=== PATIENT | male | born 1940 | race African-American/Black ===

== ENCOUNTER → 2016-05-18 | Outpatient (CLI) | payer BC, MEDICARE | LOC: RAD 09:49 | PROVIDERS: ATTEND Internal Medicine | DX: R91.1 Solitary pulmonary nodule (principal); J98.4 Other disorders of lung | CPT/HCPCS: 71250 ==

== ENCOUNTER → 2016-06-05 | Outpatient (CLI) | payer BC, MEDICARE | LOC: RAD 16:34 | PROVIDERS: ATTEND Internal Medicine | DX: R91.1 Solitary pulmonary nodule (principal) | CPT/HCPCS: 78814; A9552 ==

== ENCOUNTER → 2017-12-26 | Outpatient (CLI) | payer BC, MEDICARE ==
--- NOTE | 2017-12-26 14:01 | RADIOLOGY REPORT (SQ) ---
EXAM DESCRIPTION: CT CHEST WITHOUT COMPLETED DATE/TIME: 12/26/2017 1:24 pm REASON FOR STUDY: R91.8 OTHER NONSPECIFIC ABNORMAL FINDING OF LUNG FIELD R91.8 OTHER NONSPECIFIC AB NORMAL FINDING OF LUNG FIELD COMPARISON: 2016. TECHNIQUE: CT scan performed of the chest without intravenous contrast. Images reviewed with lung, soft tissue and bone windows. Reconstructed coronal and sagittal MPR images reviewed. All images st ored on PACS. All CT scanners at this facility use dose modulation, iterative reconstruction, and/or weight based d osing when appropriate to reduce radiation dose to as low as reasonably achievable (ALARA). [facility]: Dose Right [facility]: CareDose [facility]: Dose Right [facility]: Teradose 4D [facility]: Smart REHAPP RADIATION DOSE: CT Rad equipment meets quality standard of care and radiation dose reduction techniq ues were employed. CTDIvol: 3.1 mGy. DLP: 142 mGy-cm. mGy. LIMITATIONS: No technical limitations. FINDINGS: LUNGS AND PLEURA: Chronic right upper lobe scarring. Chronic pleural plaque, some of whic h is calcified. Stable appearance. No developing lesions. HILAR AND MEDIASTINAL STRUCTURES: No bulky adenopathy or mass. Ectatic aorta. Ascending aorta measu res up to 3.9 cm. The aorta is calcified. HEART AND VASCULAR STRUCTURES: As above. Moderate coronary calcification. No pericardial effusion. UPPER ABDOMEN: No significant findings. Limited exam. THYROID AND OTHER SOFT TISSUES: No masses. No adenopathy. BONES: No significant finding. HARDWARE: None in the chest. OTHER: No other significant findings. IMPRESSION: Chronic lung changes. No progression in nodules. No new opacities. TECHNICAL DOCUMENTATION: JOB ID: [id number] Quality ID # [id number]: Final reports with documentation of one or more dose reduction techniques (e.g., Au tomated exposure control, adjustment of the mA and/or kV according to patient size, use of iterative reconstruction technique) 2010 [employer]- All Rights Reserved Reading location - IP/workstation name: [email or web address]
== END ==
LOC: RAD 14:25
PROVIDERS: ATTEND Internal Medicine Critical Care Medicine
DX: R91.8 Other nonspecific abnormal finding of lung field (principal)
CPT/HCPCS: 71250

== ENCOUNTER 2018-03-05 16:39 | Emergency (ER) | payer BC, MEDICARE ==
[2018-03-05] MEDS ORDERED: ASPIRIN 81 MG TABLET, CHEWABLE PO ONE (16:49)
--- NOTE | 2018-03-05 17:00 | ER Document Report ---
ED General - General Stated Complaint: DIZZY Time Seen by Provider: 03/05/18 16:57 Notes: Patient presents with a story of napping at work and waking up with his right eye unable to open, he said he felt dizzy he could not open his right eye had applied up with his fingers and was short of breath for a few minutes. This resolved on its own. It lasted 20 minutes. He has no current chest pain chest pressure numbness or tingling. He did not have chest pain at the time. She of COPD intermittent nebulizer and inhaler is used. TRAVEL OUTSIDE OF THE [place] IN LAST 30 DAYS: No - Related Data Allergies/Adverse Reactions: No Known Allergies Allergy (Unverified 10/11/10 11:46) Past Medical History - Social History Smoking Status: Former Smoker Family History: Reviewed & Not Pertinent - Past Medical History Cardiac Medical History: Reports: Hx Hypertension - LISINOPRIL Denies: Hx Heart Attack Pulmonary Medical History: Denies: Hx Asthma Neurological Medical History: Denies: Hx Cerebrovascular Accident, Hx Seizures GI Medical History: Denies: Hx Hepatitis, Hx Hiatal Hernia, Hx Ulcer Musculoskeletal Medical History: Reports Hx Gout - Right foot Infectious Medical History: Denies: Hx Hepatitis Past Surgical History: Denies: Hx Open Heart Surgery, Hx Pacemaker Review of Systems - Review of Systems Notes: REVIEW OF SYSTEMS GEN: Denies fever, chills, weight loss ENT: Denies sore throat, nasal discharge, ear pain EYES: Right lid twitching. Denies blurry vision, eye pain, discharge CV: Denies chest pain, palpitations, edema RESP: Denies cough, s positive shortness of breath GI: Denies abdominal pain, nausea, vomiting, diarrhea MSK: Denies joint pain/swelling, edema, SKIN: Denies rash, skin lesions LYMPH: Denies swollen glands/lymph nodes NEURO: Denies headache, focal weakness or numbness, dizziness PSYCH: Denies depression, suicidal or homicidal ideation PHYSICAL EXAMINATION General: Thin, positive temporal wasting Head: Atraumatic, normocephalic ENT: Mouth normal, oropharynx moist, no exudates or tonsillar enlargement Eyes: Conjunctiva normal, pupils equal, lids normal Neck: No JVD, supple, no guarding CVS: Normal rate, regular rhythm, no murmurs Resp: No resp distress, equal and normal breath sounds bilaterally GI: Nondistended, soft, no tenderness to palpation, no rebound or guarding Ext: No deformities, no edema, normal range of motion in upper and lower ext Back: No CVA or midline TTP Skin: No rash, warm Lymphatic: No lymphadeopathy noted Neuro: Awake, alert. Face symmetric. GCS 15. Radial nerves II through XII are intact, no ptosis. No gross motor or sensory deficits in all 4 extremities. Physical Exam - Vital signs Vitals: Resp Pulse Ox 17 98 03/05/18 16:54 03/05/18 16:54 Course - Re-evaluation Re-evalutation: 03/05/18 22:41 Patient presents with right eye twitching and dizziness after sleeping. His symptoms have resolved on ED arrival his vital signs are normal except for hypertension. He did not have it this morning and could be dehydrated. His or the static vital signs look good despite not having been ordered by me. His workup for stroke/mass is negative on head CT chest x-ray is negative and labs are unrevealing. He was reassessed, became significantly hypertensive throughout ED stay. He was given amlodipine. He was also hydrated both orally and IV and felt much better on getting up and walking. His lack of clear diagnosis was conveyed to his family and he was encouraged to follow-up with primary care however I do not see a need for him to be hospitalized at this point given his vague symptoms and negative ED workup. I have discussed with the patient there likely diagnosis, aftercare plan, follow-up plans and my usual and customary return precautions. They verbalized understanding of this. 03/07/18 01:39 Patient tolerated p.o. - Vital Signs Vital signs: Temp Pulse Resp BP Pulse Ox 97.5 F 70 19 160/78 H 96 03/05/18 17:51 03/05/18 20:37 03/05/18 19:15 03/05/18 21:30 03/05/18 19:15 - Laboratory Result Diagrams: 03/05/18 17:00 03/05/18 17:00 Laboratory results interpreted by me: 03/05/18 03/05/18 17:00 17:00 Hgb 12.8 L RDW 15.0 H Carbon Dioxide 32 H Est GFR (Non-Af Amer) 59 L Creatine Kinase 632 H - Diagnostic Test Radiology reviewed: Image reviewed, Reports reviewed - EKG Interpretation by Me EKG shows normal: Sinus rhythm Rate: Normal Voltage: Consistant with LVH When compared to previous EKG there are: No significant change Discharge - Discharge Clinical Impression: Dizziness Condition: Good Disposition: HOME, SELF-CARE Instructions: Dizziness ([facility]) Forms: Elevated Blood Pressure Referrals: RAMIREZ YOON MD [Primary Care Provider] - Follow up as needed
[2018-03-05 17:14] LABS: ABSOLUTE EOSINOPHILS # (AUTO) 0.1 10^3/uL (0.0-0.6); ABSOLUTE LYMPHOCYTES (AUTO) 1.2 10^3/uL (0.5-4.7); ABSOLUTE MONOCYTES (AUTO) 0.4 10^3/uL (0.1-1.4); BASOPHILS % (AUTO) 0.3 % (0-2); EOSINOPHILS % (AUTO) 2.2 % (0-6); HEMATOCRIT 38.6 % (37.9-51.0); HEMOGLOBIN 12.8 g/dL (13.5-17.0); LYMPHOCYTES % (AUTO) 21.2 % (13-45); MEAN CORPUSCULAR HEMOGLOBIN 28.2 pg (27.0-33.4); MEAN CORPUSCULAR HGB CONC 33.2 g/dL (32.0-36.0); MEAN CORPUSCULAR VOLUME 85 fl (80-97); MONOCYTES % (AUTO) 7.7 % (3-13); PLATELET COUNT 255 10^3/uL (150-450); RED BLOOD COUNT 4.54 10^6/uL (4.35-5.55); SEGMENTED NEUTROPHILS % (AUTO) 68.6 % (42-78); TOTAL CELLS COUNTED % (AUTO) 100 %; WHITE BLOOD COUNT 5.9 10^3/uL (4.0-10.5)
[2018-03-05 17:37] LABS: ALANINE AMINOTRANSFERASE 32 U/L (21-72); ALBUMIN 4.2 g/dL (3.5-5.0); ALKALINE PHOSPHATASE 89 U/L (38-126); ANION GAP 9 (5-19); ASPARTATE AMINO TRANSFERASE 44 U/L (17-59); BILIRUBIN,DIRECT 0.2 mg/dL (0.0-0.4); BILIRUBIN,TOTAL 0.5 mg/dL (0.2-1.3); BLOOD UREA NITROGEN 18 mg/dL (7-20); CALCIUM 9.2 mg/dL (8.4-10.2); CARBON DIOXIDE 32 mmol/L (22-30); CHLORIDE 103 mmol/L (98-107); CREATINE KINASE 632 U/L (55-170); GLUCOSE 99 mg/dL (75-110); POTASSIUM 4.4 mmol/L (3.6-5.0); SODIUM 144.2 mmol/L (137-145); TOTAL PROTEIN 8.1 g/dL (6.3-8.2)
[2018-03-05 17:49] LABS: CREATINE KINASE MB 4.07 ng/mL (<4.55)
[2018-03-05 17:50] LABS: TROPONIN I < 0.012 ng/mL
--- NOTE | 2018-03-05 18:34 | RADIOLOGY REPORT (SQ) ---
EXAM DESCRIPTION: CT HEAD WITHOUT COMPLETED DATE/TIME: 03/05/2018 6:19 pm REASON FOR STUDY: stroke COMPARISON: None. TECHNIQUE: Axial images acquired through the brain without intravenous contrast. Images reviewed wi th bone, brain and subdural windows. Additional sagittal and coronal reconstructions were generated. Images stored on PACS. All CT scanners at this facility use dose modulation, iterative reconstruction, and/or weight based d osing when appropriate to reduce radiation dose to as low as reasonably achievable (ALARA). [facility]: Dose Right [facility]: CareDose [facility]: Dose Right [facility]: Teradose 4D [facility]: Envi[employer]o RADIATION DOSE: CT Rad equipment meets quality standard of care and radiation dose reduction techniq ues were employed. CTDIvol: 48.5 mGy. DLP: 925 mGy-cm. mGy. LIMITATIONS: None. FINDINGS: VENTRICLES: Normal CEREBRUM: No masses. No hemorrhage. No midline shift. Areas of low density in the white matter mos t likely due to chronic micro-vascular ischemic change. No evidence for acute infarction. CEREBELLUM: No masses. No hemorrhage. No alteration of density. No evidence for acute infarction. EXTRAAXIAL SPACES: Mild age-related involutional change. No fluid collections. No masses. ORBITS AND GLOBE: No intra- or extraconal masses. Normal contour of globe without masses. CALVARIUM: No fracture. PARANASAL SINUSES: No fluid or mucosal thickening. SOFT TISSUES: No mass or hematoma. OTHER: No other significant finding. IMPRESSION: MILD CHRONIC CHANGES OF ATROPHY AND MICROVASCULAR ISCHEMIA. NO ACUTE PROCESS. EVIDENCE OF ACUTE STROKE: NO. TECHNICAL DOCUMENTATION: JOB ID: [id number] Quality ID # 436: Final reports with documentation of one or more dose reduction techniques (e.g., Au tomated exposure control, adjustment of the mA and/or kV according to patient size, use of iterative reconstruction technique) 2010 [employer]- All Rights Reserved Reading location - IP/workstation name: [email or web address]
--- NOTE | 2018-03-05 18:42 | RADIOLOGY REPORT (SQ) ---
EXAM DESCRIPTION: CHEST SINGLE VIEW COMPLETED DATE/TIME: 03/05/2018 6:14 pm REASON FOR STUDY: bed 3 cp COMPARISON: December 2015 EXAM PARAMETERS: NUMBER OF VIEWS: One view. TECHNIQUE: Single frontal radiographic view of the chest acquired. RADIATION DOSE: NA LIMITATIONS: None. FINDINGS: LUNGS AND PLEURA: No opacities, masses or pneumothorax. No pleural effusion. I cannot exc lude a component of obstructive lung disease. MEDIASTINUM AND HILAR STRUCTURES: No masses. There is some prominence of the central pulmonary vesse ls which could represent a degree of pulmonary vascular congestion but could be related to pulmonary hypertension. HEART AND VASCULAR STRUCTURES: Cardiac silhouette is at the upper limits of normal in size. BONES: No acute findings. HARDWARE: None in the chest. OTHER: No other significant finding. IMPRESSION: No acute findings. Other findings as noted above TECHNICAL DOCUMENTATION: JOB ID: [id number] [employer]- All Rights Reserved Reading location - IP/workstation name: [email or web address]
[2018-03-05] MEDS ORDERED: AMLODIPINE BESYLATE 10 MG TABLET PO ONE (19:55)
[2018-03-05 21:31] VITALS: BP 160/78
--- NOTE | 2018-03-05 21:52 | EKG REPORT ---
SEVERITY:- ABNORMAL ECG - SINUS ARRHYTHMIA, RATE 54-74 FIRST DEGREE AV BLOCK PROBABLE LEFT VENTRICULAR HYPERTROPHY ANTERIOR Q WAVES, POSSIBLY DUE TO LVH BORDERLINE ST ELEVATION, LATERAL LEADS : Confirmed by: Marla Haddad MD 05-Mar-2018 21:51:43
== END 2018-03-05 21:37 | disposition home or self-care (01) ==
LOC: ER 16:39
DX: R42 Dizziness and giddiness (principal); R25.3 Fasciculation; J44.9 Chronic obstructive pulmonary disease, unspecified; R06.02 Shortness of breath; I10 Essential (primary) hypertension; Z87.891 Personal history of nicotine dependence
CPT/HCPCS: 36415; 70450; 71045; 80053; 82550; 82553; 84484; 85025; 93005; 93010; 99285

== ENCOUNTER 2018-03-12 16:22 | Emergency (ER) | payer BC, MEDICARE ==
[2018-03-12] MEDS ORDERED: NORMAL SALINE 500 ML IV ONE (17:28)
[2018-03-12 17:37] LABS: ABSOLUTE EOSINOPHILS # (AUTO) 0.1 10^3/uL (0.0-0.6); ABSOLUTE LYMPHOCYTES (AUTO) 0.9 10^3/uL (0.5-4.7); ABSOLUTE MONOCYTES (AUTO) 0.5 10^3/uL (0.1-1.4); ABSOLUTE NEUT (AUTO) 5.5 10^3/uL (1.7-8.2); BASOPHILS % (AUTO) 0.4 % (0-2); EOSINOPHILS % (AUTO) 0.8 % (0-6); HEMATOCRIT 40.1 % (37.9-51.0); HEMOGLOBIN 13.6 g/dL (13.5-17.0); LYMPHOCYTES % (AUTO) 12.4 % (13-45); MEAN CORPUSCULAR HEMOGLOBIN 28.7 pg (27.0-33.4); MEAN CORPUSCULAR HGB CONC 33.8 g/dL (32.0-36.0); MEAN CORPUSCULAR VOLUME 85 fl (80-97); MONOCYTES % (AUTO) 6.7 % (3-13); PLATELET COUNT 283 10^3/uL (150-450); RED BLOOD COUNT 4.72 10^6/uL (4.35-5.55); RED CELL DISTRIBUTION WIDTH 14.9 % (11.5-14.0); SEGMENTED NEUTROPHILS % (AUTO) 79.7 % (42-78); TOTAL CELLS COUNTED % (AUTO) 100 %; WHITE BLOOD COUNT 6.8 10^3/uL (4.0-10.5)
[2018-03-12 17:53] LABS: APPEARANCE,URINE SLIGHTLY-CLOUDY; BILIRUBIN,URINE NEGATIVE (NEGATIVE); COLOR,URINE YELLOW; GLUCOSE, URINE NEGATIVE (NEGATIVE); KETONES,URINE NEGATIVE (NEGATIVE); LEUKOCYTE ESTERASE,URINE NEGATIVE (NEGATIVE); NITRITE,URINE NEGATIVE (NEGATIVE); PROTEIN,URINE 30 mg/dL (NEGATIVE)
[2018-03-12 17:57] LABS: ALANINE AMINOTRANSFERASE 14 U/L (21-72); ALBUMIN 4.5 g/dL (3.5-5.0); ALKALINE PHOSPHATASE 97 U/L (38-126); ANION GAP 10 (5-19); ASPARTATE AMINO TRANSFERASE 36 U/L (17-59); BILIRUBIN,DIRECT 0.2 mg/dL (0.0-0.4); BILIRUBIN,TOTAL 0.5 mg/dL (0.2-1.3); BLOOD UREA NITROGEN 24 mg/dL (7-20); CALCIUM 9.5 mg/dL (8.4-10.2); CARBON DIOXIDE 36 mmol/L (22-30); CHLORIDE 97 mmol/L (98-107); CREATINE KINASE 316 U/L (55-170); GLUCOSE 124 mg/dL (75-110); POTASSIUM 4.8 mmol/L (3.6-5.0); SODIUM 142.5 mmol/L (137-145); TOTAL PROTEIN 8.7 g/dL (6.3-8.2)
--- NOTE | 2018-03-12 17:59 | RADIOLOGY REPORT (SQ) ---
EXAM DESCRIPTION: CHEST SINGLE VIEW COMPLETED DATE/TIME: 03/12/2018 5:42 pm REASON FOR STUDY: dizziness COMPARISON: Chest radiograph 03/05/[address] scan NUMBER OF VIEWS: One view. TECHNIQUE: Single frontal radiographic view of the chest acquired. LIMITATIONS: None. FINDINGS: LUNGS AND PLEURA: No opacities, masses or pneumothorax. No pleural effusion. Attenuated bl ood vessels and flattened guerita-diaphragms. Pulmonary nodules seen on CT not identified plain radio graph. MEDIASTINUM AND HILAR STRUCTURES: No masses. Contour normal. HEART AND VASCULAR STRUCTURES: Heart normal in size. Normal vasculature. BONES: No acute findings. HARDWARE: None in the chest. OTHER: No other significant finding. IMPRESSION: COPD. NO ACUTE RADIOGRAPHIC FINDING IN THE CHEST. TECHNICAL DOCUMENTATION: JOB ID: [id number] [employer]- All Rights Reserved Reading location - IP/workstation name: [email or web address]
--- NOTE | 2018-03-12 18:22 | RADIOLOGY REPORT (SQ) ---
EXAM DESCRIPTION: CT HEAD WITHOUT COMPLETED DATE/TIME: 03/12/2018 6:01 pm REASON FOR STUDY: dizziness COMPARISON: 03/05/2018 TECHNIQUE: Axial images acquired through the brain without intravenous contrast. Images reviewed wi th bone, brain and subdural windows. Additional sagittal and coronal reconstructions were generated. Images stored on PACS. All CT scanners at this facility use dose modulation, iterative reconstruction, and/or weight based d osing when appropriate to reduce radiation dose to as low as reasonably achievable (ALARA). [facility]: Dose Right [facility]: CareDose [facility]: Dose Right [facility]: Teradose 4D [facility]: Smart [employer] RADIATION DOSE: CT Rad equipment meets quality standard of care and radiation dose reduction techniq ues were employed. CTDIvol: 53.2 mGy. DLP: 1097 mGy-cm. mGy. LIMITATIONS: None. FINDINGS: VENTRICLES: Normal size and contour. CEREBRUM: No masses. No hemorrhage. No midline shift. No evidence for acute infarction. Normal gra y/white matter differentiation. No areas of low density in the white matter. CEREBELLUM: No masses. No hemorrhage. No alteration of density. No evidence for acute infarction. EXTRAAXIAL SPACES: No fluid collections. No masses. ORBITS AND GLOBE: No intra- or extraconal masses. Normal contour of globe without masses. CALVARIUM: No fracture. PARANASAL SINUSES: Left maxillary mucous retention cyst. SOFT TISSUES: No mass or hematoma. OTHER: No other significant finding. IMPRESSION: NORMAL BRAIN CT WITHOUT CONTRAST. EVIDENCE OF ACUTE STROKE: NO. COMMENT: Quality ID # 436: Final reports with documentation of one or more dose reduction techniques (e.g., Automated exposure control, adjustment of the mA and/or kV according to patient size, use of iterative reconstruction technique) TECHNICAL DOCUMENTATION: JOB ID: [id number] [employer]- All Rights Reserved Reading location - IP/workstation name: [email or web address]
[2018-03-12 18:23] LABS: CREATINE KINASE MB 3.05 ng/mL (<4.55)
[2018-03-12 18:24] LABS: TROPONIN I < 0.012 ng/mL
--- NOTE | 2018-03-12 18:30 | EKG REPORT ---
SEVERITY:- ABNORMAL ECG - SINUS RHYTHM PROBABLE LEFT VENTRICULAR HYPERTROPHY ANTERIOR Q WAVES, POSSIBLY DUE TO LVH : Confirmed by: Sunil Bautista MD 12-Mar-2018 18:29:37
--- NOTE | 2018-03-12 21:20 | ER Document Report ---
ED General - General Chief Complaint: Dizziness Stated Complaint: WEAKNESS Time Seen by Provider: 03/12/18 17:27 TRAVEL OUTSIDE OF THE [place] IN LAST 30 DAYS: No - HPI Patient complains to provider of: Dizziness weakness Notes: Patient coming in for evaluation of dizziness and weakness. Patient states he was working today and did not get to take a break continue to work and became dizzy sweating and generally weak. Patient states he was keeping himself hydrated throughout the day however is unable to tell me how much where he drank and states he only did urinate twice today. Patient otherwise states his symptoms have resolved since coming to the hospital denies any hip pain chest pain abdominal pain denies any nausea vomiting fevers or chills at this time. Patient otherwise resting comfortably upon my evaluation. Patient states similar symptoms approximately a week ago. That chart was reviewed along with his past medical here - Related Data Allergies/Adverse Reactions: No Known Allergies Allergy (Unverified 10/11/10 11:46) Past Medical History - Social History Smoking Status: Former Smoker Chew tobacco use (# tins/day): No Frequency of alcohol use: None Drug Abuse: None Family History: Reviewed & Not Pertinent Patient has suicidal ideation: No Patient has homicidal ideation: No - Past Medical History Cardiac Medical History: Reports: Hx Hypertension - LISINOPRIL Denies: Hx Heart Attack Pulmonary Medical History: Denies: Hx Asthma Neurological Medical History: Denies: Hx Cerebrovascular Accident, Hx Seizures Renal/ Medical History: Denies: Hx Peritoneal Dialysis GI Medical History: Denies: Hx Hepatitis, Hx Hiatal Hernia, Hx Ulcer Musculoskeletal Medical History: Reports Hx Gout - Right foot Infectious Medical History: Denies: Hx Hepatitis Past Surgical History: Denies: Hx Open Heart Surgery, Hx Pacemaker Physical Exam - Vital signs Vitals: Resp 16 03/12/18 16:37 Interpretation: Normal - General General appearance: Appears well, Alert - HEENT Head: Normocephalic, Atraumatic Eyes: Normal Pupils: PERRL - Respiratory Respiratory status: No respiratory distress Chest status: Nontender Breath sounds: Normal Chest palpation: Normal - Cardiovascular Rhythm: Regular Heart sounds: Normal auscultation Murmur: No - Abdominal Inspection: Normal Distension: No distension Bowel sounds: Normal Tenderness: Nontender Organomegaly: No organomegaly - Back Back: Normal, Nontender - Extremities General upper extremity: Normal inspection, Nontender, Normal color, Normal ROM , Normal temperature General lower extremity: Normal inspection, Nontender, Normal color, Normal ROM , Normal temperature, Normal weight bearing. No: Gopal's sign - Neurological Neuro grossly intact: Yes Cognition: Normal Orientation: AAOx4 Alayna Coma Scale Eye Opening: Spontaneous Alayna Coma Scale Verbal: Oriented Alayna Coma Scale Motor: Obeys Commands [place] Coma Scale Total: 15 Speech: Normal Motor strength normal: LUE, RUE, LLE, RLE Sensory: Normal Biceps - Reflex grade: 2 = Normal Triceps - Reflex grade: 2 = Normal Brachioradialis - Reflex grade: 2 = Normal Knee - Reflex grade: 2 = Normal - Psychological Associated symptoms: Normal affect, Normal mood - Skin Skin Temperature: Warm Skin Moisture: Dry Skin Color: Normal Course - Re-evaluation Re-evalutation: 03/13/18 00:29 Patient feeling better after IV fluids here. Laboratory studies did show elevation in his BUN and creatinine and an elevated specific gravity consistent with a dehydration state. Patient was encouraged to take breaks while at work and drink plenty of fluids continue all his home medications. Patient is understanding will be discharged home. - Vital Signs Vital signs: Temp Pulse Resp BP Pulse Ox 98.5 F 78 21 H 159/87 H 95 03/12/18 22:48 03/12/18 18:20 03/12/18 22:48 03/12/18 22:48 03/12/18 22:48 - Laboratory Result Diagrams: 03/12/18 17:15 03/12/18 17:15 Laboratory results interpreted by me: 03/12/18 03/12/18 03/12/18 17:15 17:15 17:35 RDW 14.9 H Seg Neutrophils % 79.7 H Lymphocytes % 12.4 L Chloride 97 L Carbon Dioxide 36 H BUN 24 H Creatinine 1.37 H Est GFR (Non-Af Amer) 50 L Glucose 124 H ALT 14 L Creatine Kinase 316 H Total Protein 8.7 H Urine Protein 30 H Urine Urobilinogen 4.0 H Discharge - Discharge Clinical Impression: Dizziness, Weakness, Dehydration Condition: Good Disposition: HOME, SELF-CARE Instructions: Dehydration ([facility]), Dizziness ([facility]), Weakness ([facility]) Additional Instructions: Your evaluation today shows signs of dehydration more likely expiration for generalized weakness. I recommend she follow-up with your primary care physician. Return to the ER symptoms worsen. Forms: Return to Work Referrals: RAMIREZ YOON MD [Primary Care Provider] - Follow up as needed
[2018-03-12 23:04] VITALS: BP 159/87
== END 2018-03-12 22:58 | disposition home or self-care (01) ==
LOC: ER 16:22
DX: R42 Dizziness and giddiness (principal); R53.1 Weakness; E86.0 Dehydration; Z87.891 Personal history of nicotine dependence; I10 Essential (primary) hypertension; Z79.899 Other long term (current) drug therapy
CPT/HCPCS: 93005; 99285; 96360; 36415; 82553; 82550; 85025; 80053; 81001; 84484; 71045; 70450; 93010; J7040

== ENCOUNTER 2018-06-22 14:37 | Observation (INO) | payer BC, MEDICARE ==
[2018-06-22 14:55] LABS: ABSOLUTE EOSINOPHILS # (AUTO) 0.1 10^3/uL (0.0-0.6); ABSOLUTE MONOCYTES (AUTO) 0.4 10^3/uL (0.1-1.4); ABSOLUTE NEUT (AUTO) 6.1 10^3/uL (1.7-8.2); BASOPHILS % (AUTO) 0.3 % (0-2); EOSINOPHILS % (AUTO) 0.9 % (0-6); HEMATOCRIT 39.9 % (37.9-51.0); HEMOGLOBIN 13.2 g/dL (13.5-17.0); LYMPHOCYTES % (AUTO) 12.8 % (13-45); MEAN CORPUSCULAR HEMOGLOBIN 28.3 pg (27.0-33.4); MEAN CORPUSCULAR HGB CONC 33.1 g/dL (32.0-36.0); MEAN CORPUSCULAR VOLUME 86 fl (80-97); MONOCYTES % (AUTO) 4.7 % (3-13); PLATELET COUNT 284 10^3/uL (150-450); RED BLOOD COUNT 4.65 10^6/uL (4.35-5.55); SEGMENTED NEUTROPHILS % (AUTO) 81.3 % (42-78); TOTAL CELLS COUNTED % (AUTO) 100 %; WHITE BLOOD COUNT 7.5 10^3/uL (4.0-10.5)
--- NOTE | 2018-06-22 15:04 | RADIOLOGY REPORT (SQ) ---
EXAM DESCRIPTION: CHEST SINGLE VIEW COMPLETED DATE/TIME: 06/22/2018 2:55 pm REASON FOR STUDY: Chest pain COMPARISON: 03/12/2018 EXAM PARAMETERS: NUMBER OF VIEWS: One view. TECHNIQUE: Single frontal radiographic view of the chest acquired. RADIATION DOSE: NA LIMITATIONS: None. FINDINGS: LUNGS AND PLEURA: Lung huston are hyperexpanded. Small right apical nodule is again noted and stable from prior studies. No consolidation or effusions. MEDIASTINUM AND HILAR STRUCTURES: No masses. Contour normal. HEART AND VASCULAR STRUCTURES: Heart normal in size. Normal vasculature. BONES: No acute findings. HARDWARE: None in the chest. OTHER: No other significant finding. IMPRESSION: Hyperexpansion. Stable right upper lobe pulmonary nodule. TECHNICAL DOCUMENTATION: JOB ID: [id number] [employer]- All Rights Reserved Reading location - IP/workstation name: [email or web address]
[2018-06-22 15:14] LABS: ALANINE AMINOTRANSFERASE 29 U/L (21-72); ALBUMIN 4.6 g/dL (3.5-5.0); ALKALINE PHOSPHATASE 89 U/L (38-126); ANION GAP 9 (5-19); ASPARTATE AMINO TRANSFERASE 43 U/L (17-59); BILIRUBIN,DIRECT 0.3 mg/dL (0.0-0.4); BILIRUBIN,TOTAL 0.7 mg/dL (0.2-1.3); BLOOD UREA NITROGEN 31 mg/dL (7-20); CALCIUM 9.1 mg/dL (8.4-10.2); CARBON DIOXIDE 29 mmol/L (22-30); CHLORIDE 105 mmol/L (98-107); CREATINE KINASE 507 U/L (55-170); GLUCOSE 123 mg/dL (75-110); SODIUM 142.8 mmol/L (137-145)
[2018-06-22 15:32] LABS: CREATINE KINASE MB 3.49 ng/mL (<4.55)
[2018-06-22 15:35] LABS: TROPONIN I < 0.012 ng/mL
--- NOTE | 2018-06-22 15:47 | ER Document Report ---
ED General - General Chief Complaint: Chest Pain Stated Complaint: CHEST PAIN Time Seen by Provider: 06/22/18 14:46 Primary Care Provider: RAMIREZ YOON MD [ACTIVE STAFF] - Follow up as needed TRAVEL OUTSIDE OF THE [place] IN LAST 30 DAYS: No - HPI Notes: Patient presents to the emergency department for evaluation. He started not feeling well overnight. Approximately 2:30 in the morning he felt dizzy and weak. He states he has had multiple episodes of diarrhea. He went to work today. He felt very dizzy and became diaphoretic. This was abnormal for him. He actually had an EKG that was concerning for STEMI per EMS. He was brought in as a STEMI alert. He is a very poor historian but he did state that he has had some chest tightness intermittently throughout the day. - Related Data Allergies/Adverse Reactions: No Known Allergies Allergy (Unverified 10/11/10 11:46) Past Medical History - General Information source: Patient, Emergency Med Personnel - Social History Smoking Status: Current Some Day Smoker Chew tobacco use (# tins/day): No Frequency of alcohol use: None Drug Abuse: None Family History: Reviewed & Not Pertinent Patient has suicidal ideation: No Patient has homicidal ideation: No - Past Medical History Cardiac Medical History: Reports: Hx Hypertension - LISINOPRIL Denies: Hx Heart Attack Pulmonary Medical History: Reports: Hx Asthma Neurological Medical History: Denies: Hx Cerebrovascular Accident, Hx Seizures Renal/ Medical History: Denies: Hx Peritoneal Dialysis GI Medical History: Denies: Hx Hepatitis, Hx Hiatal Hernia, Hx Ulcer Musculoskeletal Medical History: Reports Hx Gout - Right foot Infectious Medical History: Denies: Hx Hepatitis Past Surgical History: Denies: Hx Open Heart Surgery, Hx Pacemaker Review of Systems - Review of Systems Constitutional: Diaphoresis, Malaise EENT: No symptoms reported Cardiovascular: No symptoms reported Respiratory: No symptoms reported Gastrointestinal: Diarrhea Skin: No symptoms reported Neurological/Psychological: No symptoms reported Physical Exam - Vital signs Vitals: Resp BP 14 162/79 H 06/22/18 14:39 06/22/18 14:39 Notes: Please see paper chart. Reviewed and found to be mildly hypertensive otherwise unremarkable. - Notes Notes: Vital signs reviewed, please refer to chart. Patient is normocephalic, atraumatic. Pupils equal round, reactive to light. Neck is supple without meningismus. Heart is regular rate and rhythm. Lungs reveal occasional wheezes with mildly diminished breath sounds throughout. Abdomen is soft, nontender, normoactive bowel sounds throughout. Extremities without cyanosis, clubbing, edema. Peripheral pulses are equal. Skin is warm and dry. Patient is awake, alert, neurological exam is nonfocal. Course - Re-evaluation Re-evalutation: Patient presents to the emergency department for evaluation. He actually arrived here as a STEMI activation. Upon review of the EKG as well as symptoms from the patient, I do not have any suspicion of STEMI at this time. His EKG is unchanged. He has absolutely no chest pain or difficulty breathing at this time. My suspicion is that he became diaphoretic and hypotensive secondary to diarrhea. He remained stable throughout the course of his stay here. 06/22/18 15:47 Orthostatic vital signs ordered. Patient's heart rate increased by 18, blood p ressure dropped by 16. I do suspect that he is mildly dry. He was given IV fluids. Second troponin is pending. Patient's family came by. Evidently he has been having these dizzy and near syncopal spells frequently over the last few months. 06/22/18 19:43 06/22/18 20:10 I did speak with Dr. Win at 1945. He did ask that the patient second troponin come back as negative before he would accept the patient, otherwise he will accept him as an observation to medical floor. Patient second troponin is negative so patient will be admitted. - Vital Signs Vital signs: Temp Pulse Resp BP Pulse Ox 97.4 F 69 28 H 148/70 H 97 06/22/18 14:50 06/22/18 19:21 06/22/18 20:01 06/22/18 20:01 06/22/18 20:01 - Laboratory Result Diagrams: 06/22/18 14:43 06/22/18 14:43 Laboratory results interpreted by me: 06/22/18 06/22/18 14:43 14:43 Hgb 13.2 L RDW 15.0 H Seg Neutrophils % 81.3 H Lymphocytes % 12.8 L BUN 31 H Creatinine 1.48 H Est GFR ( Amer) 56 L Est GFR (Non-Af Amer) 46 L Glucose 123 H Creatine Kinase 507 H - Diagnostic Test Radiology reviewed: Reports reviewed Radiology results interpreted by me: 06/22/18 15:44 No acute changes. Stable right upper lobe nodule. - EKG Interpretation by Me Additional EKG results interpreted by me: 06/22/18 15:45 Sinus mechanism with a rate of 76 bpm. Normal axis, IVCD. No acute ST or T wave changes concerning for ischemia or infarction. Mild J-point elevation in inferior leads. No reciprocal changes. This is unchanged when compared to prior study of March 12, 2018. Discharge - Discharge Clinical Impression: Chest pain, Dizziness Condition: Fair Disposition: ADMITTED OBSERVATION Admitting Provider: Hospitalist - [facility] Admitted: Medical Floor Referrals: RAMIREZ YOON MD [ACTIVE STAFF] - Follow up as needed
[2018-06-22] MEDS ORDERED: NORMAL SALINE 1000 ML 1,000 ML IV ONE (19:38)
[2018-06-22] MEDS ORDERED: MAG HYDROX/AL HYDROX/SIMETH SUSP 30 ML UDCUP PO PRN (20:09)
[2018-06-22 20:37] LABS: ABSOLUTE RETICS # 0.043 10^6/uL (0.028-0.122); RETICULOCYTE COUNT (AUTO) 0.93 % (0.66-2.85)
[2018-06-22 20:57] LABS: IRON(TIBC) 107.1 ug/dL (49-181)
--- NOTE | 2018-06-22 21:19 | EKG REPORT ---
SEVERITY:- ABNORMAL ECG - SINUS RHYTHM MULTIPLE ATRIAL PREMATURE COMPLEXES PROBABLE LEFT ATRIAL ABNORMALITY LEFT VENTRICULAR HYPERTROPHY ANTERIOR Q WAVES, POSSIBLY DUE TO LVH : Confirmed by: Marla Haddad MD 22-Jun-2018 21:18:25
[2018-06-22] MEDS ORDERED: ATORVASTATIN CALCIUM 40 MG TABLET PO SCH (22:00)
[2018-06-22] MEDS: BENAZEPRIL HCL 10 MG TABLET PO SCH (22:19)
[2018-06-23] MEDS ORDERED: HYDRALAZINE HCL INJ/PF 20 MG/1 ML SDV IV PRN (04:56)
--- NOTE | 2018-06-23 05:14 | PDOC H&P ---
History of Present Illness Admission Date/PCP: 06/22/18 20:23 PAOLO WELLS PA-C Patient complains of: Chest pain History of Present Illness: CONCEPCION TURNER is a 77 year old male with history of hypertension, lung nodules COPD and tobacco Dependence. Patient presents with approximately 12 hours of generalized weakness associated with chest pain, Dr. palpitations, diaphoresis and dizziness prompting him to seek evaluation emergency room. Patient is currently asymptomatic. He is unaware of alleviating or exacerbating factors. Denies recent change in medications. Workup reveals uncontrolled hypertension, acute renal failure, elevated total CK and an abnormal EKG unchanged from previous. He is referred to the hospitalist for observation. The patient also complains of significant weight loss over the last 12 months and known lung nodules. Past Medical History Cardiac Medical History: Reports: Hypertension Denies: Myocardial Infarction Pulmonary Medical History: Reports: Bronchitis, Chronic Obstructive Pulmonary Disease (COPD) Neurological Medical History: Denies: Seizures GI Medical History: Denies: Hepatitis, Hiatal Hernia Musculoskeltal Medical History: Reports: Arthritis, Gout - Right foot Psychiatric Medical History: Reports: Tobacco Dependency Hematology: Denies: Anemia, Sickle Cell Disease Past Surgical History Past Surgical History: Denies: Pacemaker Social History Information Source: Patient, [facility] Records Smoking Status: Former Smoker Drugs: None - Advance Directive Resuscitation Status: Full Code Family History Family History: COPD, Hypertension Parental Family History Reviewed: Yes Children Family History Reviewed: Yes Sibling(s) Family History Reviewed.: Yes Medication/Allergy Allergies/Adverse Reactions: No Known Allergies Allergy (Unverified 10/11/10 11:46) Review of Systems Constitutional: PRESENT: as per HPI, weakness, weight loss, other - Cachexia and temporal wasting Eyes: ABSENT: visual disturbances Ears: ABSENT: hearing changes Cardiovascular: ABSENT: chest pain, dyspnea on exertion, edema, orthropnea, palpitations Respiratory: PRESENT: as per HPI, cough, dyspnea. ABSENT: sputum Gastrointestinal: ABSENT: abdominal pain, constipation, diarrhea, hematemesis, hematochezia, nausea, vomiting Genitourinary: ABSENT: dysuria, hematuria Musculoskeletal: ABSENT: joint swelling Integumentary: ABSENT: rash, wounds Neurological: ABSENT: abnormal gait, abnormal speech, confusion, dizziness, focal weakness, syncope Psychiatric: ABSENT: anxiety, depression, homidical ideation, suicidal ideation Endocrine: ABSENT: cold intolerance, heat intolerance, polydipsia, polyuria Hematologic/Lymphatic: ABSENT: easy bleeding, easy bruising Physical Exam Vital Signs: Temp Pulse Resp BP Pulse Ox 97.9 F 58 L 19 168/67 H 100 06/23/18 00:01 06/23/18 02:29 06/23/18 00:01 06/23/18 00:01 06/23/18 00:01 Intake & Output 06/21/18 06/22/18 06/23/18 11:59 11:59 11:59 Intake Total 1000 Balance 1000 Weight 70 kg General appearance: PRESENT: no acute distress, cooperative, thin, other - Cachexia and temporal wasting. ABSENT: disheveled, mild distress Head exam: PRESENT: atraumatic, normocephalic Eye exam: PRESENT: conjunctiva pink, EOMI, PERRLA. ABSENT: scleral icterus Ear exam: PRESENT: normal external ear exam Mouth exam: PRESENT: moist, tongue midline Neck exam: ABSENT: carotid bruit, JVD, lymphadenopathy, thyromegaly Respiratory exam: PRESENT: clear to auscultation jimbo, crackles, prolonged expiratory phas, symmetrical, tachypnea. ABSENT: rales, rhonchi, wheezes Cardiovascular exam: PRESENT: RRR. ABSENT: diastolic murmur, rubs, systolic murmur Pulses: PRESENT: normal dorsalis pedis pul Vascular exam: PRESENT: normal capillary refill GI/Abdominal exam: PRESENT: normal bowel sounds, soft. ABSENT: distended, guarding, mass, organolmegaly, rebound, tenderness Rectal exam: PRESENT: deferred Extremities exam: PRESENT: full ROM. ABSENT: calf tenderness, clubbing, pedal edema Neurological exam: PRESENT: alert, awake, oriented to person, oriented to place, oriented to time, oriented to situation, CN II-XII grossly intact. ABSENT: motor sensory deficit Psychiatric exam: PRESENT: appropriate affect, normal mood. ABSENT: homicidal ideation, suicidal ideation Skin exam: PRESENT: dry, intact, warm. ABSENT: cyanosis, rash Results Laboratory Results: 06/22/18 14:43 06/22/18 14:43 06/22/18 06/22/18 06/22/18 14:43 14:43 14:43 WBC 7.5 RBC 4.65 Hgb 13.2 L Hct 39.9 MCV 86 MCH 28.3 MCHC 33.1 RDW 15.0 H Plt Count 284 Seg Neutrophils % 81.3 H Lymphocytes % 12.8 L Monocytes % 4.7 Eosinophils % 0.9 Basophils % 0.3 Absolute Neutrophils 6.1 Absolute Lymphocytes 1.0 Absolute Monocytes 0.4 Absolute Eosinophils 0.1 Absolute Basophils 0.0 Retic Count (auto) 0.93 Absolute Retic 0.043 Sodium 142.8 Potassium 5.0 Chloride 105 Carbon Dioxide 29 Anion Gap 9 BUN 31 H Creatinine 1.48 H Est GFR ( Amer) 56 L Est GFR (Non-Af Amer) 46 L Glucose 123 H Calcium 9.1 Iron TIBC % Saturation Ferritin Total Bilirubin 0.7 AST 43 ALT 29 Alkaline Phosphatase 89 Total Protein 8.0 Albumin 4.6 Vitamin B12 Folate TSH 06/22/18 06/22/18 19:10 19:10 WBC RBC Hgb Hct MCV MCH MCHC RDW Plt Count Seg Neutrophils % Lymphocytes % Monocytes % Eosinophils % Basophils % Absolute Neutrophils Absolute Lymphocytes Absolute Monocytes Absolute Eosinophils Absolute Basophils Retic Count (auto) Absolute Retic Sodium Potassium Chloride Carbon Dioxide Anion Gap BUN Creatinine Est GFR ( Amer) Est GFR (Non-Af Amer) Glucose Calcium Iron 107.1 TIBC 319 % Saturation 34 Ferritin 68.40 Total Bilirubin AST ALT Alkaline Phosphatase Total Protein Albumin Vitamin B12 244.0 Folate 10.60 TSH 2.81 06/22/18 06/22/18 06/22/18 14:43 14:43 19:10 Creatine Kinase 507 H CK-MB (CK-2) 3.49 Troponin I < 0.012 < 0.012 NT-Pro-B Natriuret Pep 06/22/18 06/23/18 19:10 01:16 Creatine Kinase CK-MB (CK-2) Troponin I < 0.012 NT-Pro-B Natriuret Pep 71 Impressions: Chest X-Ray 06/22/18 14:46 IMPRESSION: Hyperexpansion. Stable right upper lobe pulmonary nodule. Assessment & Plan - Diagnosis (1) Chest pain Is this a current diagnosis for this admission?: Yes Plan: Atypical chest pain though the patient's pain is atypical there are multiple risk factors for coronary artery disease and subsequently will observe and evaluation of acute coronary syndrome versus coronary artery disease with angina l equivalents. Cardiac monitoring blood pressure Q6 hours ,TSH, lipid profile, serial cardiac enzymes and cardiac stress test (2) Weight loss Is this a current diagnosis for this admission?: Yes Plan: Lifelong tobacco dependence, known lung nodule, weight loss. Follow-up CT chest (3) Orthostatic dizziness Is this a current diagnosis for this admission?: Yes Plan: Review orthostatic blood pressure, lifestyle modification and Manuel stocking (4) Acute renal failure Is this a current diagnosis for this admission?: Yes Plan: Mild prerenal azotemia, IV fluid challenge, follow-up chemistry (5) Elevated CK Is this a current diagnosis for this admission?: Yes Plan: Unclear cause, follow-up total CK and chemistry - Time Time Spent: 50 to 70 Minutes
--- NOTE | 2018-06-23 06:10 | RADIOLOGY REPORT (SQ) ---
EXAM DESCRIPTION: CT CHEST WITHOUT IV CONTRAST COMPLETED DATE/TME: 06/23/2018 00:00 CLINICAL HISTORY: 77 years Male, sob chest pain weight loss Comparison: December 26, 2017, report only. PET CT June 06, 2016. Technique: No contrast. Coronal and sagittal reformat. This exam was performed according to our departmental dose-optimization program, which includes automated exposure control, adjustment of the mA and/or kV according to patient size and/or use of iterative reconstruction technique. [facility]: Dose Right [facility]: CareDose [facility]: Dose Right [facility]: Teradose 4D [facility]: SezWho LIMITATIONS: No contrast. Findings: Emphysematous hyperinflation. Scattered atelectasis or scar including the right upper lobe and bilateral lung bases, including 1.0 cm nodular component in the medial right upper lobe as previously described.. Multifocal pleural thickening with calcification. Coronary arterial calcification. Atherosclerotic vascular disease. Degenerative disc disease. Unenhanced inferior neck, axillae, mediastinum, airway, lymphatics, heart, vasculature, upper abdomen, and musculoskeleton appear otherwise unremarkable. Impression: No acute cardiopulmonary findings. Emphysematous hyperinflation. Scattered atelectasis or scar including the right upper lobe and bilateral lung bases. Multifocal pleural thickening with calcification. No suspicious interval change.
[2018-06-23 07:26] LABS: ANION GAP 9 (5-19); BLOOD UREA NITROGEN 27 mg/dL (7-20); CALCIUM 8.3 mg/dL (8.4-10.2); CARBON DIOXIDE 25 mmol/L (22-30); CHLORIDE 107 mmol/L (98-107); CHOLESTEROL 120.75 mg/dL (0-200); CREATINE KINASE 302 U/L (55-170); GLUCOSE 88 mg/dL (75-110); POTASSIUM 4.5 mmol/L (3.6-5.0); SODIUM 140.9 mmol/L (137-145); TRIGLYCERIDES 41 mg/dL (<150)
[2018-06-23 07:37] LABS: DIRECT LDL 60 mg/dL (<100)
[2018-06-23] MEDS ORDERED: AMLODIPINE BESYLATE 2.5 MG TABLET PO SCH (10:00)
--- NOTE | 2018-06-23 15:11 | NONINVASIVE CARDIOLOGY REPORT ---
Date of procedure 06/23/2018 Patient name Humberto Ac Date of [address] Quirino Edgar MD Reason for study chest pain Imaging protocol Lexiscan nuclear myocardial perfusion test Rest images of the heart were obtained 60 minutes after injection of Cardiolite 10.23 mCi. Under the supervision of Ludwin Yang MD patient was given Lexiscan 0.4 mg IV at rest followed by Cardiolite 31.8 mCi. Patient's resting heart rate was 59 bpm and increased to a maximum of 94 bpm. Patient's resting blood pressure was 140/71 and changed to 159/65 mmHg. Patient complained of shortness of breath after Lexiscan injection and was given Aminophyllin 25 mg IV to reverse the effect of Lexiscan. Patient denied any chest pain after Lexiscan injection. 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 Stress images of the heart were obtained 45 minutes after Cardiolite stress dose was given. Raw rest and stress images were reviewed and showed significant gut uptake. Myocardial perfusion imaging shows decreased radiotracer uptake in the inferior and inferoseptal LV wall segments which appears fixed on both rest and stress images with no convincing evidence of a reversible perfusion defect on stress images. Left ventricular ejection fraction was calculated at 54%. Computer-assisted tomographic analysis shows normal LV wall motion and systolic contractility poststress. Impression 1. No Lexiscan induced EKG changes specific for ischemia noted. 2. Myocardial perfusion imaging shows fixed perfusion defect in the inferior and inferoseptal LV wall segments suggestive of myocardial scar. Component of diaphragmatic attenuation cannot be ruled out. No convincing evidence of inducible perfusion defects noted to suggest ischemia. 3. Normal LVEF at 54%. 4. Normal LV wall motion and systolic contractility poststress. Electronically signed by Ludwin Yang MD [facility]
[2018-06-23] MEDS ORDERED: AMINOPHYLLINE INJ/PF 250 MG/10 ML SDV IV ONE (15:49)
[2018-06-23] MEDS ORDERED: REGADENOSON INJ 0.4 MG/5 ML DISP.SYRIN IV ONE (15:49)
[2018-06-23] MEDS: DOCUSATE SODIUM 100 MG CAPSULE PO SCH ×2 (17:26→17:41)
[2018-06-23] MEDS: BENAZEPRIL HCL 10 MG TABLET PO SCH (17:27)
[2018-06-23 17:33] VITALS: BP 131/70
--- NOTE | 2018-06-26 14:24 | PDOC DISCHARGE SUMMARY ---
General - Admit/Disc Date/PCP Admission Date/Primary Care Provider: 06/22/18 20:23 PAOLO WELLS PA-C Discharge Date: 06/23/18 - Discharge Diagnosis (1) Acute renal failure Is this a current diagnosis for this admission?: Yes Summary: Resolved. Admitted with Cr 1.48. He was provided gentle IV fluid hydration with follow up Cr 1.02. He is encouraged to increase water intake and avoid environmental exposure that may increase risk of dehydration (patient continues to work in a warehouse). (2) Chest pain Is this a current diagnosis for this admission?: Yes Summary: Resolved; patient denies further episodes of chest discomfort. Troponins negative x 5 TSH, lipid panel, and A1c are acceptable. CXR revealed stable RUL pulmonary nodule. Chest CT demonstrated emphysematous hyperinflation, scattered atelectasis or scar to RUL and bilateral lung bases. Multifocal pleural thickening with calcifications. No acute findings or suspicious interval changes. EKG shows NSR with LVH. Stress test demonstrated a fixed defect to the inferior and inferoseptal LV wall segments without evidence of inducible perfusion defects. The patient was admitted to the medical floor on continuous cardiac telemetry. He was provided daily aspirin and statin therapy. He underwent the above described evaluation. At time of discharge, the patient was asymptomatic and maintaining oxygen saturations while ambulatory on room air. He is advised to STOP smoking and to follow up with his primary care provider within 1 week. He is instructed to return to the Emergency Department as needed for any concerning symptoms. (3) Dizziness Is this a current diagnosis for this admission?: Yes Summary: Resolved; secondary to dehydration. He was provided gentle IV fluid hydration. Oral fluids were encouraged. Orthostatic vital signs are normal. (4) Elevated CK Is this a current diagnosis for this admission?: Yes Summary: Improved; secondary to dehydration. He was provided gentle IV fluid hydration. Oral fluids were encouraged. (5) Orthostatic dizziness Is this a current diagnosis for this admission?: Yes Summary: Resolved; secondary to dehydration. He was provided gentle IV fluid hydration. Oral fluids were encouraged. Orthostatic vital signs are normal. (6) Weight loss Is this a current diagnosis for this admission?: Yes Summary: Lifelong tobacco dependence, known lung nodule, weight loss. Follow-up CT chest was negative for suspicious interval change. - Additional Information Resuscitation Status: Full Code Discharge Diet: Cardiac Discharge Activity: Activity As Tolerated, Balance Activity w/Rest, Walk Frequently Prescriptions: Aspirin [Ecotrin 81 mg EC Tablet] 81 mg PO DAILY #90 tab Home Medications: Albuterol Sulfate [Proair HFA Inhalation Aerosol 8.5 gm MDI] 1 puff IH Q6HP PRN 06/23/18 Aspirin [Ecotrin 81 mg EC Tablet] 81 mg PO DAILY #90 tab 06/23/18 Fluticasone Propionate [Flonase Nasal Tilton 50 Mcg/Tilton 16 gm] 1 spray NASL DAILYP PRN 06/23/18 Losartan/Hydrochlorothiazide [Losartan-Hctz 50-12.5 mg Tab] 2 each PO DAILY 06/23/18 History of Present Illness History of Present Illness: Per H&P by Dr. Win: CONCEPCION TURNER is a 77 year old male with history of hypertension, lung nodules COPD and tobacco Dependence. Patient presents with approximately 12 hours of generalized weakness associated with chest pain, Dr. palpitations, diaphoresis and dizziness prompting him to seek evaluation emergency room. Patient is currently asymptomatic. He is unaware of alleviating or exacerbating factors. Denies recent change in medications. Wo rkup reveals uncontrolled hypertension, acute renal failure, elevated total CK and an abnormal EKG unchanged from previous. He is referred to the hospitalist for observation. The patient also complains of significant weight loss over the last 12 months and known lung nodules. Physical Exam Vital Signs: Temp Pulse Resp BP Pulse Ox 98.2 F 56 L 20 131/70 H 99 06/23/18 17:29 06/23/18 17:29 06/23/18 17:29 06/23/18 17:29 06/23/18 17:29 General appearance: PRESENT: no acute distress, cooperative, thin, well- developed, well-nourished Head exam: PRESENT: atraumatic, normocephalic Eye exam: PRESENT: conjunctiva pink, EOMI, PERRLA. ABSENT: scleral icterus Ear exam: PRESENT: normal external ear exam Mouth exam: PRESENT: moist, tongue midline Neck exam: ABSENT: carotid bruit, JVD, lymphadenopathy, thyromegaly Respiratory exam: PRESENT: clear to auscultation jimbo, symmetrical, unlabored. ABSENT: rales, rhonchi, wheezes Cardiovascular exam: PRESENT: RRR. ABSENT: diastolic murmur, rubs, systolic murmur Pulses: PRESENT: normal dorsalis pedis pul Vascular exam: PRESENT: normal capillary refill GI/Abdominal exam: PRESENT: normal bowel sounds, soft. ABSENT: distended, guarding, mass, organolmegaly, rebound, tenderness Rectal exam: PRESENT: deferred Extremities exam: PRESENT: full ROM. ABSENT: calf tenderness, clubbing, pedal edema Neurological exam: PRESENT: alert, awake, oriented to person, oriented to place, oriented to time, oriented to situation, CN II-XII grossly intact. ABSENT: motor sensory deficit Psychiatric exam: PRESENT: appropriate affect, normal mood. ABSENT: homicidal ideation, suicidal ideation Skin exam: PRESENT: dry, intact, warm. ABSENT: cyanosis, rash Results Laboratory Results: 06/22/18 14:43 06/23/18 06:45 06/22/18 06/22/18 06/22/18 14:43 14:43 19:10 Creatine Kinase 507 H CK-MB (CK-2) 3.49 Troponin I < 0.012 < 0.012 NT-Pro-B Natriuret Pep 06/22/18 06/23/18 06/23/18 19:10 01:16 06:45 Creatine Kinase CK-MB (CK-2) Troponin I < 0.012 < 0.012 NT-Pro-B Natriuret Pep 71 06/23/18 06/23/18 06/23/18 06:45 06:45 16:33 Creatine Kinase 302 H CK-MB (CK-2) 2.43 Troponin I < 0.012 NT-Pro-B Natriuret Pep Impressions: Chest X-Ray 06/22/18 14:46 IMPRESSION: Hyperexpansion. Stable right upper lobe pulmonary nodule. Qualifiers - * PATIENT BEING DISCHARGED WITH ANY OF THE FOLLOWING DIAGNOSIS: No Plan Discharge Plan: Discharge to home with self care. Follow up with primary care provider within 1 week. Eat a low sodium diet, remain physically active as able (walking), and STOP smoking. Return to the emergency department as needed for concerning symptoms.
== END 2018-06-23 18:19 | disposition home or self-care (01) ==
LOC: ER 14:37 → EH 20:23 → 4N 23:48
PROVIDERS: ADMIT Internal Medicine; ATTEND Internal Medicine
DX: N17.9 Acute kidney failure, unspecified (principal); R07.89 Other chest pain; R42 Dizziness and giddiness; E86.0 Dehydration; R79.89 Other specified abnormal findings of blood chemistry; R91.1 Solitary pulmonary nodule; R63.4 Abnormal weight loss; F17.200 Nicotine dependence, unspecified, uncomplicated; J44.9 Chronic obstructive pulmonary disease, unspecified; I10 Essential (primary) hypertension; R00.2 Palpitations; R61 Generalized hyperhidrosis; Z79.899 Other long term (current) drug therapy; Z79.82 Long term (current) use of aspirin; Z82.49 Family history of ischemic heart disease and other diseases of the circulatory system; R19.7 Diarrhea, unspecified
CPT/HCPCS: 93005; 99285; 96360; 36415 ×2; 82553 ×2; 82607; 82550 ×2; 82728; 82746; 83540; 83550; 84443; 85025; 85045; 80048; 80053; 84484 ×2; 80061; 83880; 93017; 71045; 78452; 71250; 93010; A9500; J2785; J3490 ×2; J7030; J0280; Q9969

== ENCOUNTER 2018-07-16 13:28 | Emergency (ER) | payer BC, MEDICARE ==
--- NOTE | 2018-07-16 14:15 | ER Document Report ---
ED Medical Screen (RME) - General Chief Complaint: High Blood Pressure Stated Complaint: BLOOD PRESSURE ISSUE Time Seen by Provider: 07/16/18 14:09 Primary Care Provider: PAOLO WELLS PA-C [Primary Care Provider] - Follow up as needed Mode of Arrival: Ambulatory Information source: Patient Notes: 77-year-old male with hypertension, COPD presents with complaint of dizziness, blurred vision that started when he awoke this morning. Patient states that he feels off balance. He reports a home blood pressure reading of 200/85. He takes Cozaar only. He no longer smokes or drinks. Patient continues [place] the [employer]. Patient also reports worsening shortness of breath with exertion. I have greeted and performed a rapid initial assessment of this patient. A comprehensive ED assessment and evaluation of the patient, analysis of test results and completion of medical decision making process we will be contacted by additional ED providers. PHYSICAL EXAMINATION: Vital signs reviewed GENERAL: Well-appearing, well-nourished and in no acute distress. LUNGS: No respiratory distress Musculoskeletal: Normal range of motion NEUROLOGICAL: Normal speech, normal gait. Cranial nerves II through XII intact PSYCH: Normal mood, normal affect. SKIN: Warm, Dry, normal turgor, no rashes or lesions noted. TRAVEL OUTSIDE OF THE [place] IN LAST 30 DAYS: No - HPI Onset: This morning Onset/Duration: Sudden Quality of pain: No pain Associated Symptoms: Dizzy/lightheaded, Shortness of breath Exacerbated by: Walking Relieved by: Denies Similar symptoms previously: No Recently seen / treated by doctor: No - Related Data Smoking: Quit greater than 1 year Frequency of alcohol use: None Drug Abuse: None Allergies/Adverse Reactions: No Known Allergies Allergy (Verified 07/16/18 14:08) Past Medical History - Social History Frequency of alcohol use: None Drug Abuse: None - Past Medical History Cardiac Medical History: Reports: Hx Hypertension Denies: Hx Heart Attack Pulmonary Medical History: Reports: Hx Asthma, Hx Bronchitis, Hx COPD Neurological Medical History: Denies: Hx Cerebrovascular Accident, Hx Seizures Renal/ Medical History: Denies: Hx Peritoneal Dialysis GI Medical History: Denies: Hx Hepatitis, Hx Hiatal Hernia, Hx Ulcer Musculoskeltal Medical History: Reports Hx Arthritis, Reports Hx Gout - Right foot Infectious Medical History: Denies: Hx Hepatitis Past Surgical History: Denies: Hx Open Heart Surgery, Hx Pacemaker - Immunizations History of Influenza Vaccine for 02/2017 - 07/2017 Season: Yes Physical Exam - Vital signs Vitals: Temp Pulse Resp BP Pulse Ox 98.0 F 53 L 14 172/67 H 93 07/16/18 13:47 07/16/18 13:47 07/16/18 13:47 07/16/18 13:47 07/16/18 13:47 Course - Vital Signs Vital signs: Temp Pulse Resp BP Pulse Ox 98.0 F 53 L 14 172/67 H 93 07/16/18 13:47 07/16/18 13:47 07/16/18 13:47 07/16/18 13:47 07/16/18 13:47 Doctor's Discharge - Discharge Referrals: PAOLO WELLS PA-C [Primary Care Provider] - Follow up as needed
[2018-07-16 14:57] LABS: ABSOLUTE EOSINOPHILS # (AUTO) 0.1 10^3/uL (0.0-0.6); ABSOLUTE LYMPHOCYTES (AUTO) 1.2 10^3/uL (0.5-4.7); ABSOLUTE MONOCYTES (AUTO) 0.3 10^3/uL (0.1-1.4); ABSOLUTE NEUT (AUTO) 2.9 10^3/uL (1.7-8.2); BASOPHILS % (AUTO) 0.4 % (0-2); EOSINOPHILS % (AUTO) 1.3 % (0-6); HEMATOCRIT 38.6 % (37.9-51.0); HEMOGLOBIN 12.8 g/dL (13.5-17.0); LYMPHOCYTES % (AUTO) 26.7 % (13-45); MEAN CORPUSCULAR HEMOGLOBIN 28.1 pg (27.0-33.4); MEAN CORPUSCULAR HGB CONC 33.1 g/dL (32.0-36.0); MEAN CORPUSCULAR VOLUME 85 fl (80-97); MONOCYTES % (AUTO) 6.9 % (3-13); PLATELET COUNT 287 10^3/uL (150-450); RED BLOOD COUNT 4.55 10^6/uL (4.35-5.55); RED CELL DISTRIBUTION WIDTH 15.5 % (11.5-14.0); SEGMENTED NEUTROPHILS % (AUTO) 64.7 % (42-78); TOTAL CELLS COUNTED % (AUTO) 100 %; WHITE BLOOD COUNT 4.5 10^3/uL (4.0-10.5)
[2018-07-16 15:13] LABS: APPEARANCE,URINE CLEAR; BILIRUBIN,URINE NEGATIVE (NEGATIVE); COLOR,URINE COLORLESS; GLUCOSE, URINE NEGATIVE (NEGATIVE); KETONES,URINE NEGATIVE (NEGATIVE); LEUKOCYTE ESTERASE,URINE NEGATIVE (NEGATIVE); NITRITE,URINE NEGATIVE (NEGATIVE); PROTEIN,URINE NEGATIVE (NEGATIVE); URINE SPECIFIC GRAVITY 1.003; UROBILINOGEN,URINE NEGATIVE mg/dL (<2.0)
[2018-07-16 15:17] LABS: ALANINE AMINOTRANSFERASE 18 U/L (21-72); ALBUMIN 4.5 g/dL (3.5-5.0); ALKALINE PHOSPHATASE 94 U/L (38-126); ANION GAP 10 (5-19); ASPARTATE AMINO TRANSFERASE 27 U/L (17-59); BILIRUBIN,DIRECT 0.3 mg/dL (0.0-0.4); BILIRUBIN,TOTAL 0.8 mg/dL (0.2-1.3); BLOOD UREA NITROGEN 17 mg/dL (7-20); CALCIUM 9.8 mg/dL (8.4-10.2); CARBON DIOXIDE 29 mmol/L (22-30); CHLORIDE 100 mmol/L (98-107); GLUCOSE 88 mg/dL (75-110); POTASSIUM 4.5 mmol/L (3.6-5.0); SODIUM 139.3 mmol/L (137-145); TOTAL PROTEIN 8.4 g/dL (6.3-8.2)
--- NOTE | 2018-07-16 15:37 | RADIOLOGY REPORT (SQ) ---
EXAM DESCRIPTION: CT HEAD WITHOUT COMPLETED DATE/TIME: 07/16/2018 3:21 pm REASON FOR STUDY: Dizziness, blurred vision COMPARISON: 03/12/2018 TECHNIQUE: Axial images acquired through the brain without intravenous contrast. Images reviewed wi th bone, brain and subdural windows. Additional sagittal and coronal reconstructions were generated. Images stored on PACS. All CT scanners at this facility use dose modulation, iterative reconstruction, and/or weight based d osing when appropriate to reduce radiation dose to as low as reasonably achievable (ALARA). [facility]: Dose Right [facility]: CareDose [facility]: Dose Right [facility]: Teradose 4D [facility]: Smart [employer] RADIATION DOSE: CT Rad equipment meets quality standard of care and radiation dose reduction techniq ues were employed. CTDIvol: 53.2 mGy. DLP: 1044 mGy-cm. mGy. LIMITATIONS: None. FINDINGS: VENTRICLES: Normal size and contour. CEREBRUM: No masses. No hemorrhage. No midline shift. No evidence for acute infarction. Few scatte red areas of low density in the white matter most likely chronic small vessel ischemic changes. CEREBELLUM: No masses. No hemorrhage. No alteration of density. No evidence for acute infarction. EXTRAAXIAL SPACES: No fluid collections. No masses. ORBITS AND GLOBE: No intra- or extraconal masses. Normal contour of globe without masses. CALVARIUM: No fracture. PARANASAL SINUSES: No fluid or mucosal thickening. SOFT TISSUES: No mass or hematoma. OTHER: No other significant finding. IMPRESSION: MILD CHRONIC MICROVASCULAR ISCHEMIA. NO ACUTE IMAGING FINDINGS IN THE BRAIN. PROMINENT TORUS PALATINUS. EVIDENCE OF ACUTE STROKE: NO. COMMENT: Quality ID # [id number]: Final reports with documentation of one or more dose reduction techniques (e.g., Automated exposure control, adjustment of the mA and/or kV according to patient size, use of iterative reconstruction technique) TECHNICAL DOCUMENTATION: JOB ID: [id number] [employer]- All Rights Reserved Reading location - IP/workstation name: [email or web address]
--- NOTE | 2018-07-16 16:07 | RADIOLOGY REPORT (SQ) ---
EXAM DESCRIPTION: CHEST 2 VIEWS COMPLETED DATE/TIME: 07/16/2018 3:57 pm REASON FOR STUDY: Shortness of breath COMPARISON: and 03/12/2018. NUMBER OF VIEWS: Two view. TECHNIQUE: Frontal and lateral radiographic views of the chest acquired. LIMITATIONS: None. FINDINGS: LUNGS AND PLEURA: Chronic scarring. No opacities, masses or pneumothorax. No pleural effu tate. Attenuated blood vessels and flattened guerita-diaphragms. MEDIASTINUM AND HILAR STRUCTURES: No masses. No contour abnormalities. HEART AND VASCULAR STRUCTURES: Heart normal in size and contour. No evidence for failure. BONES: No acute findings. HARDWARE: None in the chest. OTHER: No other significant finding. IMPRESSION: COPD. CHRONIC SCARRING. NO ACUTE RADIOGRAPHIC FINDING IN THE CHEST. TECHNICAL DOCUMENTATION: JOB ID: [id number] [employer]- All Rights Reserved Reading location - IP/workstation name: [email or web address]
[2018-07-16] MEDS ORDERED: LOSARTAN POTASSIUM 50 MG TABLET PO ONE (17:37)
--- NOTE | 2018-07-16 17:38 | ER Document Report ---
ED General - General Chief Complaint: High Blood Pressure Stated Complaint: BLOOD PRESSURE ISSUE Time Seen by Provider: 07/16/18 14:09 Primary Care Provider: PAOLO WELLS PA-C [Primary Care Provider] - Follow up as needed Mode of Arrival: Ambulatory Information source: Patient Notes: Patient is here for elevated blood pressure. He said he checked his blood pressure this afternoon and it was high so he decided to come to the emergency room. TRAVEL OUTSIDE OF THE [place] IN LAST 30 DAYS: No - HPI Onset: Just prior to arrival Onset/Duration: Sudden Quality of pain: No pain Severity: None Pain Level: Denies Associated symptoms: Headache Exacerbated by: Denies Relieved by: Denies Similar symptoms previously: Yes Recently seen / treated by doctor: No - Related Data Allergies/Adverse Reactions: No Known Allergies Allergy (Verified 07/16/18 14:08) Past Medical History - General Information source: Patient - Social History Smoking Status: Former Smoker Frequency of alcohol use: None Drug Abuse: None Family History: COPD, Hypertension Patient has suicidal ideation: No Patient has homicidal ideation: No - Past Medical History Cardiac Medical History: Reports: Hx Hypertension Denies: Hx Heart Attack Pulmonary Medical History: Reports: Hx Asthma, Hx Bronchitis, Hx COPD Neurological Medical History: Denies: Hx Cerebrovascular Accident, Hx Seizures Renal/ Medical History: Denies: Hx Peritoneal Dialysis GI Medical History: Denies: Hx Hepatitis, Hx Hiatal Hernia, Hx Ulcer Musculoskeletal Medical History: Reports Hx Arthritis, Reports Hx Gout - Right foot Infectious Medical History: Denies: Hx Hepatitis Past Surgical History: Denies: Hx Open Heart Surgery, Hx Pacemaker Review of Systems - Review of Systems Constitutional: No symptoms reported EENT: No symptoms reported Cardiovascular: No symptoms reported Respiratory: No symptoms reported Gastrointestinal: No symptoms reported Genitourinary: No symptoms reported Male Genitourinary: No symptoms reported Musculoskeletal: No symptoms reported Skin: No symptoms reported Hematologic/Lymphatic: No symptoms reported Neurological/Psychological: Headaches -: Yes All other systems reviewed and negative Physical Exam - Vital signs Vitals: Temp Pulse Resp BP Pulse Ox 98.0 F 53 L 14 172/67 H 93 07/16/18 13:47 07/16/18 13:47 07/16/18 13:47 07/16/18 13:47 07/16/18 13:47 Interpretation: Normal - General General appearance: Appears well, Alert - HEENT Head: Normocephalic, Atraumatic Eyes: Normal Pupils: PERRL - Respiratory Respiratory status: No respiratory distress Chest status: Nontender Breath sounds: Normal Chest palpation: Normal - Cardiovascular Rhythm: Regular Heart sounds: Normal auscultation Murmur: No - Abdominal Inspection: Normal Distension: No distension Bowel sounds: Normal Tenderness: Nontender Organomegaly: No organomegaly - Back Back: Normal, Nontender - Extremities General upper extremity: Normal inspection, Nontender, Normal color, Normal ROM, Normal temperature General lower extremity: Normal inspection, Nontender, Normal color, Normal ROM, Normal temperature, Normal weight bearing. No: Gopal's sign - Neurological Neuro grossly intact: Yes Cognition: Normal Orientation: AAOx4 [place] Coma Scale Eye Opening: Spontaneous [place] Coma Scale Verbal: Oriented [place] Coma Scale Motor: Obeys Commands [place] Coma Scale Total: 15 Speech: Normal Motor strength normal: LUE, RUE, LLE, RLE Sensory: Normal - Psychological Associated symptoms: Normal affect, Normal mood - Skin Skin Temperature: Warm Skin Moisture: Dry Skin Color: Normal Course - Re-evaluation Re-evalutation: 07/16/18 20:19 Patient says he is feeling much better and he wants to go home. - Vital Signs Vital signs: Temp Pulse Resp BP Pulse Ox 98.0 F 55 L 18 169/76 H 96 07/16/18 21:08 07/16/18 21:08 07/16/18 21:08 07/16/18 21:08 07/16/18 21:08 - Laboratory Result Diagrams: 07/16/18 18:17 07/16/18 18:17 Laboratory results interpreted by me: 07/16/18 07/16/18 07/16/18 14:44 14:44 18:17 WBC 3.9 L Hgb 12.8 L 12.8 L RDW 15.5 H 15.4 H Carbon Dioxide ALT 18 L Creatine Kinase Total Protein 8.4 H 07/16/18 18:17 WBC Hgb RDW Carbon Dioxide 32 H ALT 19 L Creatine Kinase 253 H Total Protein - Diagnostic Test Radiology reviewed: Reports reviewed - EKG Interpretation by Me EKG shows normal: Sinus rhythm Rate: Bradycardia - 54 When compared to previous EKG there are: Previous EKG unavailable Additional EKG results interpreted by me: 07/16/18 20:15 Q waves in the anterior leads. Peaked T waves. No STEMI. Discharge - Discharge Clinical Impression: Hypertension Qualifiers: Hypertension type: unspecified Qualified Code(s): I10 - Essential (primary) hypertension Condition: Stable Disposition: HOME, SELF-CARE Instructions: High Blood Pressure, Requiring Treatment ([facility]) Additional Instructions: Please follow-up with your primary doctor tomorrow morning. Return to the emergency room if your condition worsens. Prescriptions: Clonidine HCl [Catapres 0.1 mg Tablet] 0.1 mg PO Q12 #60 tablet Forms: Return to Work Referrals: PAOLO WELLS PA-C [Primary Care Provider] - Follow up as needed
--- NOTE | 2018-07-16 17:58 | EKG REPORT ---
SEVERITY:- ABNORMAL ECG - SINUS RHYTHM ATRIAL PREMATURE COMPLEX LAD, CONSIDER LEFT ANTERIOR FASCICULAR BLOCK LEFT VENTRICULAR HYPERTROPHY CONSIDER ANTERIOR INFARCT CONSIDER HYPERKALEMIA. : Confirmed by: Sunil Bautista MD 16-Jul-2018 17:57:44
[2018-07-16 18:18] LABS: INTERNATIONAL RATION (INR) 0.89; PROTHROMBIN TIME 12.5 SEC (11.4-15.4)
[2018-07-16 18:30] LABS: ABSOLUTE EOSINOPHILS # (AUTO) 0.1 10^3/uL (0.0-0.6); ABSOLUTE LYMPHOCYTES (AUTO) 1.3 10^3/uL (0.5-4.7); ABSOLUTE MONOCYTES (AUTO) 0.3 10^3/uL (0.1-1.4); ABSOLUTE NEUT (AUTO) 2.2 10^3/uL (1.7-8.2); BASOPHILS % (AUTO) 0.3 % (0-2); EOSINOPHILS % (AUTO) 1.7 % (0-6); HEMATOCRIT 38.4 % (37.9-51.0); HEMOGLOBIN 12.8 g/dL (13.5-17.0); LYMPHOCYTES % (AUTO) 33.8 % (13-45); MEAN CORPUSCULAR HEMOGLOBIN 28.3 pg (27.0-33.4); MEAN CORPUSCULAR HGB CONC 33.3 g/dL (32.0-36.0); MEAN CORPUSCULAR VOLUME 85 fl (80-97); MONOCYTES % (AUTO) 8.5 % (3-13); PLATELET COUNT 267 10^3/uL (150-450); RED BLOOD COUNT 4.53 10^6/uL (4.35-5.55); RED CELL DISTRIBUTION WIDTH 15.4 % (11.5-14.0); SEGMENTED NEUTROPHILS % (AUTO) 55.7 % (42-78); TOTAL CELLS COUNTED % (AUTO) 100 %; WHITE BLOOD COUNT 3.9 10^3/uL (4.0-10.5)
[2018-07-16 18:32] LABS: PARTIAL THROMBOPLASTIN TIME 29.1 SEC (23.5-35.8)
[2018-07-16 18:47] LABS: ALANINE AMINOTRANSFERASE 19 U/L (21-72); ALBUMIN 4.3 g/dL (3.5-5.0); ALKALINE PHOSPHATASE 84 U/L (38-126); ANION GAP 6 (5-19); ASPARTATE AMINO TRANSFERASE 24 U/L (17-59); BILIRUBIN,DIRECT 0.1 mg/dL (0.0-0.4); BILIRUBIN,TOTAL 0.6 mg/dL (0.2-1.3); BLOOD UREA NITROGEN 16 mg/dL (7-20); CALCIUM 9.6 mg/dL (8.4-10.2); CARBON DIOXIDE 32 mmol/L (22-30); CHLORIDE 100 mmol/L (98-107); GLUCOSE 100 mg/dL (75-110); POTASSIUM 4.3 mmol/L (3.6-5.0); SODIUM 137.9 mmol/L (137-145); TOTAL PROTEIN 7.8 g/dL (6.3-8.2)
[2018-07-16 18:48] LABS: CREATINE KINASE 253 U/L (55-170)
[2018-07-16 19:09] LABS: CREATINE KINASE MB 2.15 ng/mL (<4.55); NT PRO BNP 98 pg/mL (<450)
[2018-07-16 19:10] LABS: TROPONIN I < 0.012 ng/mL
[2018-07-16] MEDS ORDERED: CLONIDINE HCL 0.1 MG TABLET PO ONE (20:18)
[2018-07-16 21:09] VITALS: BP 169/76
== END 2018-07-16 21:49 | disposition home or self-care (01) ==
LOC: ER 13:28
DX: I10 Essential (primary) hypertension (principal); R00.1 Bradycardia, unspecified; R51 Headache; J44.9 Chronic obstructive pulmonary disease, unspecified; Z87.891 Personal history of nicotine dependence
CPT/HCPCS: 36415; 70450; 71046; 80053; 81001; 82550; 82553; 83880; 84484; 85025; 85610; 85730; 93005; 93010; 99284

== ENCOUNTER 2019-02-19 12:32 | Observation (INO) | payer BC, MEDICARE ==
[2019-02-19] MEDS ORDERED: ASPIRIN 81 MG TABLET, CHEWABLE PO ONE (12:34)
--- NOTE | 2019-02-19 12:55 | ER Document Report ---
ED Cardiac - General Chief Complaint: Chest Pain Stated Complaint: CHEST PAIN Time Seen by Provider: 02/19/19 12:51 Primary Care Provider: PAOLO WELLS PA-C [Primary Care Provider] - Follow up as needed Notes: 78-year-old male with history of hypertension presents with 2 weeks of worsening dyspnea. Patient stated he constantly feels dyspneic. It is worse with exertion. Worse with walking. States had a dry nonproductive cough lots of fatigue. He denies any leg swelling. The patient stated he has pressure in his chest almost as if there is a lump or balloon in it. She has a persistent smoker. He went to his doctor's office today and they sent him here to the ER via ambulance. Patient describes the pain is heaviness and pressure in his chest is nonradiating. Rates it as moderate to severe it comes and goes. Worse with exertion. Denies any fever chills cough or sore throat denies calf pain or leg swelling denies abdominal pain denies nausea vomiting diarrhea or diaphoresis. TRAVEL OUTSIDE OF THE [place] IN LAST 30 DAYS: No - Related Data Allergies/Adverse Reactions: No Known Allergies Allergy (Verified 02/19/19 14:08) Past Medical History - Social History Smoking Status: Current Every Day Smoker Family History: COPD, Hypertension - Past Medical History Cardiac Medical History: Reports: Hx Hypertension Denies: Hx Heart Attack Pulmonary Medical History: Reports: Hx Asthma, Hx Bronchitis, Hx COPD Neurological Medical History: Denies: Hx Cerebrovascular Accident, Hx Seizures Renal/ Medical History: Denies: Hx Peritoneal Dialysis GI Medical History: Denies: Hx Hepatitis, Hx Hiatal Hernia, Hx Ulcer Musculoskeletal Medical History: Reports Hx Arthritis, Reports Hx Gout - Right foot Infectious Medical History: Denies: Hx Hepatitis Past Surgical History: Denies: Hx Open Heart Surgery, Hx Pacemaker Review of Systems - Review of Systems Constitutional: denies: Chills, Fever Cardiovascular: Chest pain. denies: Dyspnea Respiratory: Cough, Short of breath Gastrointestinal: denies: Nausea, Vomiting -: Yes All other systems reviewed and negative Physical Exam - Vital signs Vitals: Pulse Ox 98 02/19/19 12:34 - Notes Notes: GENERAL_APPEARANCE: well_nourished, alert, cooperative VITALS: reviewed, see vital signs table. HEAD: no_swelling\tenderness on the head. EYES: PERRL, EOMI, conjunctiva_clear. NOSE: no_nasal_discharge. MOUTH: (-)decreased moisture. THROAT: no_tonsilar_inflammation, no_airway_obstruction. no_lymphadenopathy NECK: supple, no_neck_tenderness, (-)thyromegaly. BACK: no_back_tenderness. CHEST_WALL: no_chest_tenderness. LUNGS: no_wheezing, no_rales, no_rhonchi, (-)accessory muscle use, good air exchange bilateral. HEART: normal_rate, normal_rhythm, normal_S1, normal_S2, (-)S3, (-)S4, no_m urmur, no_rub. ABDOMEN: normal_BS, soft, no_abd_tenderness, (-)guarding, (-)rebound, no_organomegaly, no_abd_masses. EXTREMITIES: strength 5/5 in all_extremities, good pulses in all_extremities, no_swelling\tenderness in the extremities, trace pedal_edema. SKIN: warm, dry, good_color, no_rash. MENTAL_STATUS: speech_clear, oriented_X_3, normal_affect, responds_appropriately to questions. Course - Re-evaluation Re-evalutation: 02/19/19 12:55 78-year-old male presents with chest pain difficulty breathing. Is been progressively getting worse over the past couple weeks he was sent here via EMS for his family doctor will do a cardiac work-up and the patient has not had provocative testing in a very long time I think it is likely going to result in a hospitalization for continued work-up. 02/19/19 14:20 Patient is doing better and is pain-free at this time. Patient will have an inch of Nitropaste placed. EKG shows LVH no acute ST abnormalities. The patient will be hospitalized continue serial troponins and stress testing if needed. - Vital Signs Vital signs: Temp Pulse Resp BP Pulse Ox 17 96 02/19/19 14:00 02/19/19 14:00 - Laboratory Result Diagrams: 02/19/19 12:50 02/19/19 12:50 Laboratory results interpreted by me: 02/19/19 02/19/19 02/19/19 12:50 12:50 12:50 RDW 15.7 H Potassium 3.3 L Chloride 96 L Carbon Dioxide 35 H Creatine Kinase 185 H NT-Pro-B Natriuret Pep 488 H - Diagnostic Test Radiology reviewed: Reports reviewed Radiology results interpreted by me: 02/19/19 14:19 Chest X-Ray 02/19/19 00:00 IMPRESSION: Chronic lung changes with no acute cardiopulmonary findings. - EKG Interpretation by Me EKG shows normal: Sinus rhythm Rate: Normal Rhythm: NSR Voltage: Consistant with LVH Discharge - Discharge Clinical Impression: Chest pain Qualifiers: Chest pain type: other chest pain Qualified Code(s): R07.89 - Other chest pain; R07.8 - Other chest pain Condition: Good Disposition: ADMITTED OBSERVATION Admitting Provider: SHERMAN Bauer Unit Admitted: Telemetry Referrals: PAOLO WELLS PA-C [Primary Care Provider] - Follow up as needed
[2019-02-19 13:03] LABS: ABSOLUTE EOSINOPHILS # (AUTO) 0.1 10^3/uL (0.0-0.6); ABSOLUTE LYMPHOCYTES (AUTO) 2.1 10^3/uL (0.5-4.7); ABSOLUTE MONOCYTES (AUTO) 0.7 10^3/uL (0.1-1.4); ABSOLUTE NEUT (AUTO) 5.4 10^3/uL (1.7-8.2); BASOPHILS % (AUTO) 0.2 % (0-2); EOSINOPHILS % (AUTO) 0.8 % (0-6); HEMATOCRIT 41.8 % (37.9-51.0); HEMOGLOBIN 13.8 g/dL (13.5-17.0); LYMPHOCYTES % (AUTO) 25.6 % (13-45); MEAN CORPUSCULAR HEMOGLOBIN 27.7 pg (27.0-33.4); MEAN CORPUSCULAR HGB CONC 33.1 g/dL (32.0-36.0); MEAN CORPUSCULAR VOLUME 84 fl (80-97); MONOCYTES % (AUTO) 8.4 % (3-13); PLATELET COUNT 250 10^3/uL (150-450); RED BLOOD COUNT 4.99 10^6/uL (4.35-5.55); RED CELL DISTRIBUTION WIDTH 15.7 % (11.5-14.0); TOTAL CELLS COUNTED % (AUTO) 100 %; WHITE BLOOD COUNT 8.4 10^3/uL (4.0-10.5)
[2019-02-19 13:19] LABS: ALBUMIN 4.2 g/dL (3.5-5.0); ALKALINE PHOSPHATASE 91 U/L (38-126); ANION GAP 9 (5-19); ASPARTATE AMINO TRANSFERASE 21 U/L (17-59); BILIRUBIN,DIRECT 0.1 mg/dL (0.0-0.4); BILIRUBIN,TOTAL 0.5 mg/dL (0.2-1.3); BLOOD UREA NITROGEN 15 mg/dL (7-20); CALCIUM 8.9 mg/dL (8.4-10.2); CARBON DIOXIDE 35 mmol/L (22-30); CHLORIDE 96 mmol/L (98-107); CREATINE KINASE 185 U/L (55-170); GLUCOSE 89 mg/dL (75-110); POTASSIUM 3.3 mmol/L (3.6-5.0); TOTAL PROTEIN 8.1 g/dL (6.3-8.2)
[2019-02-19 13:31] LABS: CREATINE KINASE MB 2.2 ng/mL (<4.55); TROPONIN I 0.012 ng/mL
--- NOTE | 2019-02-19 13:39 | RADIOLOGY REPORT (SQ) ---
EXAM DESCRIPTION: CHEST 2 VIEWS COMPLETED DATE/TIME: 02/19/2019 1:19 pm REASON FOR STUDY: bed 3 cp COMPARISON: 07/16/2018 EXAM PARAMETERS: NUMBER OF VIEWS: two views TECHNIQUE: Digital Frontal and Lateral radiographic views of the chest acquired. RADIATION DOSE: NA LIMITATIONS: none FINDINGS: LUNGS AND PLEURA: There is hyperexpansion of the lungs. There is scarring in the suprahil ar region on the right. There is no infiltrate or effusion. No mass is appreciated. MEDIASTINUM AND HILAR STRUCTURES: No masses or contour abnormalities. HEART AND VASCULAR STRUCTURES: Heart normal size. No evidence for failure. BONES: No acute findings. HARDWARE: None in the chest. OTHER: No other significant finding. IMPRESSION: Chronic lung changes with no acute cardiopulmonary findings. TECHNICAL DOCUMENTATION: JOB ID: [id number] [employer]- All Rights Reserved Reading location - IP/workstation name: [email or web address]
[2019-02-19] MEDS ORDERED: NITROGLYCERIN 2% OINTMENT 1 GM PACKET TP ONE (14:19)
[2019-02-19] MEDS ORDERED: LEVALBUTEROL HCL NEB 1.25 MG/3 ML AMPUL NEB PRN (15:11)
[2019-02-19] MEDS ORDERED: ONDANSETRON HCL INJ/PF 4 MG/2 ML SDV IV PRN (15:11)
[2019-02-19] MEDS ORDERED: ONDANSETRON 4 MG TAB.RAPDIS PO PRN (15:11)
[2019-02-19] MEDS ORDERED: ACETAMINOPHEN 325 MG TABLET PO PRN (15:11)
[2019-02-19] MEDS ORDERED: MAGNESIUM HYDROXIDE SUSP 30 ML UDCUP PO PRN (15:11)
[2019-02-19 15:51] LABS: INTERNATIONAL RATION (INR) 0.92; PROTHROMBIN TIME 12.3 SEC (11.4-15.4)
[2019-02-19 15:51] LABS: APPEARANCE,URINE CLEAR; BILIRUBIN,URINE NEGATIVE (NEGATIVE); COLOR,URINE COLORLESS; GLUCOSE, URINE NEGATIVE (NEGATIVE); KETONES,URINE NEGATIVE (NEGATIVE); LEUKOCYTE ESTERASE,URINE NEGATIVE (NEGATIVE); NITRITE,URINE NEGATIVE (NEGATIVE); PROTEIN,URINE NEGATIVE (NEGATIVE); URINE SPECIFIC GRAVITY 1.006; UROBILINOGEN,URINE NEGATIVE mg/dL (<2.0)
[2019-02-19] MEDS: NORMAL SALINE 1000 ML 1,000 ML IV PRN (15:55)
[2019-02-19] MEDS: LOSARTAN POTASSIUM 50 MG TABLET PO SCH ×2 (16:03→21:55)
[2019-02-19] MEDS: ENOXAPARIN SODIUM INJ 40 MG/0.4 ML DISP.SYRIN SUBCUT SCH (16:05)
[2019-02-19] MEDS: METOPROLOL SUCCINATE 25 MG TAB.SR.24H PO SCH (16:16)
--- NOTE | 2019-02-19 17:36 | PDOC H&P ---
History of Present Illness Admission Date/PCP: 02/19/19 14:38 PAOLO WELLS PA-C History of Present Illness: 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 Patient states that he is also had some sharp chest pain. Patient denies any pain that radiates down the arm or up into the neck. he does state that he has had a dry nonproductive cough for the last couple weeks and is been taking lots of cough medicine for this. May be one reason that his blood pressure was elevated today. His only other significant medical problem involves hypertension asthma bronchitis and COPD Past Medical History Cardiac Medical History: Reports: Hypertension Denies: Myocardial Infarction Pulmonary Medical History: Reports: Asthma, Bronchitis, Chronic Obstructive Pulmonary Disease (COPD) Neurological Medical History: Denies: Seizures GI Medical History: Denies: Hepatitis, Hiatal Hernia Musculoskeltal Medical History: Reports: Arthritis, Gout - Right foot Hematology: Denies: Anemia, Sickle Cell Disease Past Surgical History Past Surgical History: Denies: Pacemaker Social History Smoking Status: Former Smoker Electronic Cigarette use?: No Drugs: None - Advance Directive Resuscitation Status: Full Code Family History Family History: COPD, Hypertension Parental Family History Reviewed: No Children Family History Reviewed: No Sibling(s) Family History Reviewed.: No Medication/Allergy Home Medications: Clonidine HCl [Catapres 0.1 mg Tablet] 0.1 mg PO Q12 #60 tablet 07/16/18 Losartan Potassium 50 mg PO BID 07/16/18 Allergies/Adverse Reactions: No Known Allergies Allergy (Verified 02/19/19 14:08) Review of Systems Constitutional: ABSENT: chills, fever(s), headache(s), weight gain, weight loss Cardiovascular: PRESENT: dyspnea on exertion Respiratory: PRESENT: cough, dyspnea Neurological: ABSENT: abnormal gait, abnormal speech, confusion, dizziness, focal weakness, syncope Psychiatric: ABSENT: anxiety, depression, homidical ideation, suicidal ideation Physical Exam Vital Signs: Temp Pulse Resp BP Pulse Ox 97.4 F 47 L 18 183/71 H 100 02/19/19 17:12 02/19/19 17:12 02/19/19 17:12 02/19/19 17:12 02/19/19 17:12 Intake & Output 02/18/19 02/19/19 02/20/19 06:59 06:59 06:59 Intake Total 266 Balance 266 Weight 71.9 kg General appearance: PRESENT: no acute distress, other - Sitting up talking in f ull sentences does not appear to be in any pain at this time Respiratory exam: PRESENT: clear to auscultation jimbo. ABSENT: rales, rhonchi, wheezes Cardiovascular exam: PRESENT: RRR. ABSENT: diastolic murmur, rubs, systolic murmur Neurological exam: PRESENT: alert, awake, oriented to person, oriented to place, oriented to time, oriented to situation, CN II-XII grossly intact. ABSENT: motor sensory deficit Psychiatric exam: PRESENT: appropriate affect, normal mood. ABSENT: homicidal ideation, suicidal ideation Results Laboratory Results: 02/19/19 12:50 02/19/19 12:50 02/19/19 02/19/19 02/19/19 12:45 12:50 12:50 WBC 8.4 RBC 4.99 Hgb 13.8 Hct 41.8 MCV 84 MCH 27.7 MCHC 33.1 RDW 15.7 H Plt Count 250 Seg Neutrophils % 65.0 Sodium 139.6 Potassium 3.3 L Chloride 96 L Carbon Dioxide 35 H Anion Gap 9 BUN 15 Creatinine 0.78 Est GFR ( Amer) > 60 Glucose 89 Calcium 8.9 Total Bilirubin 0.5 AST 21 Alkaline Phosphatase 91 Total Protein 8.1 Albumin 4.2 TSH Urine Color COLORLESS Urine Appearance CLEAR Urine pH 8.0 Ur Specific [place] 1.006 Urine Protein NEGATIVE Urine Glucose (UA) NEGATIVE Urine Ketones NEGATIVE Urine Blood NEGATIVE Urine Nitrite NEGATIVE Ur Leukocyte Esterase NEGATIVE Urine WBC (Auto) 0 Urine RBC (Auto) 1 02/19/19 15:30 WBC RBC Hgb Hct MCV MCH MCHC RDW Plt Count Seg Neutrophils % Sodium Potassium Chloride Carbon Dioxide Anion Gap BUN Creatinine Est GFR ( Amer) Glucose Calcium Total Bilirubin AST Alkaline Phosphatase Total Protein Albumin TSH 2.55 Urine Color Urine Appearance Urine pH Ur Specific [place] Urine Protein Urine Glucose (UA) Urine Ketones Urine Blood Urine Nitrite Ur Leukocyte Esterase Urine WBC (Auto) Urine RBC (Auto) 02/19/19 02/19/19 12:50 12:50 Creatine Kinase 185 H CK-MB (CK-2) 2.20 Troponin I 0.012 NT-Pro-B Natriuret Pep 488 H Impressions: Chest X-Ray 02/19/19 00:00 IMPRESSION: Chronic lung changes with no acute cardiopulmonary findings. Assessment and Plan - Diagnosis (1) Dyspnea on exertion Is this a current diagnosis for this admission?: Yes Plan: Patient will have a cardiac work-up done as I feel his shortness of breath is secondary to cardiac function as opposed to pulmonary (2) Hypertension Is this a current diagnosis for this admission?: Yes Plan: Patient was on losartan and clonidine at home I will continue the losartan and add a beta-robert. Blood pressure on admission 161/81 later in the day 183/71 (3) Chest pain Qualifiers: Chest pain type: other chest pain Qualified Code(s): R07.89 - Other chest pain; R07.8 - Other chest pain Is this a current diagnosis for this admission?: Yes Plan: he was not having chest pain when I interviewed him in the emergency room, first troponin was negative. (4) Dizziness Is this a current diagnosis for this admission?: Yes Plan: Patient states that when he was short of breath he was dizzy and lightheaded but no vertigo - Plan Summary Summary: Will consult cardiology, do serial enzymes, add a beta-robert and a statin. Studies will be determined by the unit assistant. Patient is medically stable. - Time Time Spent with patient: 35 or more minutes
--- NOTE | 2019-02-19 17:59 | EKG REPORT ---
SEVERITY:- ABNORMAL ECG - SINUS RHYTHM ATRIAL PREMATURE COMPLEX PROBABLE LEFT ATRIAL ABNORMALITY LEFT VENTRICULAR HYPERTROPHY : Confirmed by: Erin Doty 19-Feb-2019 17:58:43
[2019-02-19] MEDS: POTASSIUM CHLORIDE 20 MEQ/50 ML RTU IV SCH ×2 (18:48→21:54)
[2019-02-19] MEDS: FAMOTIDINE 20 MG TABLET PO SCH (21:54)
[2019-02-19] MEDS: ATORVASTATIN CALCIUM 20 MG TABLET PO SCH (21:55)
[2019-02-19 22:19] LABS: CREATINE KINASE MB 1.61 ng/mL (<4.55); TROPONIN I < 0.012 ng/mL
[2019-02-20 04:17] LABS: CREATINE KINASE MB 1.57 ng/mL (<4.55)
[2019-02-20 04:18] LABS: TROPONIN I < 0.012 ng/mL
[2019-02-20 06:02] LABS: ABSOLUTE EOSINOPHILS # (AUTO) 0.1 10^3/uL (0.0-0.6); ABSOLUTE MONOCYTES (AUTO) 0.5 10^3/uL (0.1-1.4); ABSOLUTE NEUT (AUTO) 4.3 10^3/uL (1.7-8.2); BASOPHILS % (AUTO) 0.3 % (0-2); EOSINOPHILS % (AUTO) 1.2 % (0-6); HEMATOCRIT 34.7 % (37.9-51.0); LYMPHOCYTES % (AUTO) 29.1 % (13-45); MEAN CORPUSCULAR HEMOGLOBIN 27.7 pg (27.0-33.4); MEAN CORPUSCULAR HGB CONC 33.2 g/dL (32.0-36.0); MEAN CORPUSCULAR VOLUME 84 fl (80-97); MONOCYTES % (AUTO) 7.1 % (3-13); PLATELET COUNT 217 10^3/uL (150-450); RED BLOOD COUNT 4.15 10^6/uL (4.35-5.55); RED CELL DISTRIBUTION WIDTH 15.4 % (11.5-14.0); SEGMENTED NEUTROPHILS % (AUTO) 62.3 % (42-78); TOTAL CELLS COUNTED % (AUTO) 100 %; WHITE BLOOD COUNT 6.9 10^3/uL (4.0-10.5)
[2019-02-20 06:08] LABS: HEMOGLOBIN 11.5 g/dL (13.5-17.0)
[2019-02-20] MEDS ORDERED: NITROGLYCERIN 2% OINTMENT 1 GM PACKET TP PRN (06:08)
[2019-02-20 06:09] LABS: ANION GAP 5 (5-19); BLOOD UREA NITROGEN 17 mg/dL (7-20); CALCIUM 8.1 mg/dL (8.4-10.2); CARBON DIOXIDE 35 mmol/L (22-30); CHLORIDE 98 mmol/L (98-107); GLUCOSE 79 mg/dL (75-110)
[2019-02-20] MEDS: NITROGLYCERIN 0.4 MG/TAB 25 TAB/BOTTLE SL PRN ×2 (06:27→07:21)
--- NOTE | 2019-02-20 10:05 | PDOC PROGRESS REPORT ---
Subjective Progress Note for:: 02/20/19 Subjective:: 78-year-old black male who was admitted yesterday for chest pain and shortness of breath. Opponent x3 have been negative. Will monitor patient's blood pressure which still seems to be slightly elevated. Heart rate still less than 60 although patient tells me this is been a problem for years. Will order echocardiogram to evaluate patient's ejection fracture Reason For Visit: CHEST PAIN,HYPERTENSION,SHORTNESS OF BREATH,COPD Physical Exam Vital Signs: Temp Pulse Resp BP Pulse Ox 98.2 F 38 L 18 208/67 H 100 02/20/19 07:23 02/20/19 07:23 02/20/19 07:23 02/20/19 07:23 02/20/19 07:23 Intake & Output 02/19/19 02/20/19 02/21/19 06:59 06:59 06:59 Intake Total 984 Output Total 750 Balance 234 Weight 74.9 kg General appearance: PRESENT: no acute distress, other - Patient states he feels better with oxygen nasal cannula although he talks in full sentences does not complain of any chest pain Respiratory exam: PRESENT: clear to auscultation jimbo. ABSENT: rales, rhonchi, wheezes Cardiovascular exam: PRESENT: bradycardia Neurological exam: PRESENT: alert, awake, oriented to person, oriented to place, oriented to time, oriented to situation, CN II-XII grossly intact, other - No evidence of confusion. ABSENT: motor sensory deficit Psychiatric exam: PRESENT: appropriate affect, normal mood. ABSENT: homicidal ideation, suicidal ideation Results Laboratory Results: 02/20/19 05:35 02/20/19 05:35 02/19/19 02/19/19 02/19/19 12:45 12:50 12:50 WBC 8.4 RBC 4.99 Hgb 13.8 Hct 41.8 MCV 84 MCH 27.7 MCHC 33.1 RDW 15.7 H Plt Count 250 Seg Neutrophils % 65.0 Sodium 139.6 Potassium 3.3 L Chloride 96 L Carbon Dioxide 35 H Anion Gap 9 BUN 15 Creatinine 0.78 Est GFR ( Amer) > 60 Glucose 89 Calcium 8.9 Magnesium Total Bilirubin 0.5 AST 21 Alkaline Phosphatase 91 Total Protein 8.1 Albumin 4.2 TSH Urine Color COLORLESS Urine Appearance CLEAR Urine pH 8.0 Ur Specific [place] 1.006 Urine Protein NEGATIVE Urine Glucose (UA) NEGATIVE Urine Ketones NEGATIVE Urine Blood NEGATIVE Urine Nitrite NEGATIVE Ur Leukocyte Esterase NEGATIVE Urine WBC (Auto) 0 Urine RBC (Auto) 1 02/19/19 02/20/19 02/20/19 15:30 05:35 05:35 WBC 6.9 RBC 4.15 L Hgb 11.5 L D Hct 34.7 L MCV 84 MCH 27.7 MCHC 33.2 RDW 15.4 H Plt Count 217 Seg Neutrophils % 62.3 Sodium 137.9 Potassium 4.0 Chloride 98 Carbon Dioxide 35 H Anion Gap 5 BUN 17 Creatinine 0.91 Est GFR ( Amer) > 60 Glucose 79 Calcium 8.1 L Magnesium 1.8 Total Bilirubin AST Alkaline Phosphatase Total Protein Albumin TSH 2.55 Urine Color Urine Appearance Urine pH Ur Specific [place] Urine Protein Urine Glucose (UA) Urine Ketones Urine Blood Urine Nitrite Ur Leukocyte Esterase Urine WBC (Auto) Urine RBC (Auto) 02/19/19 02/19/19 02/19/19 12:50 12:50 21:35 Creatine Kinase 185 H CK-MB (CK-2) 2.20 1.61 Troponin I 0.012 < 0.012 NT-Pro-B Natriuret Pep 488 H 02/20/19 03:39 Creatine Kinase CK-MB (CK-2) 1.57 Troponin I < 0.012 NT-Pro-B Natriuret Pep Impressions: Chest X-Ray 02/19/19 00:00 IMPRESSION: Chronic lung changes with no acute cardiopulmonary findings. Assessment and Plan - Diagnosis (1) Dyspnea on exertion Is this a current diagnosis for this admission?: Yes Plan: Patient will have a cardiac work-up done as I feel his shortness of breath is secondary to cardiac function as opposed to pulmonary 02/20/2019 medically stable, using 2 L nasal cannula O2 sat at 100% Ambulate patient in the hallway on room air and check his saturations (2) Hypertension Is this a current diagnosis for this admission?: Yes Plan: Patient was on losartan and clonidine at home I will continue the losartan and add a beta-robert. Blood pressure on admission 161/81 later in the day 183/71 02/20/2019 patient's blood pressure was elevated this morning 208/67 patient to get his Toprol today and may add his Catapres back to his regimen, he was taking 0.1 mg every 12 hours prior to admission (3) Chest pain Qualifiers: Chest pain type: other chest pain Qualified Code(s): R07.89 - Other chest pain; R07.8 - Other chest pain Is this a current diagnosis for this admission?: Yes Plan: he was not having chest pain when I interviewed him in the emergency room, first troponin was negative. 02/20/2019 3 troponins are negative we will repeat EKG this morning as well as order echocardiogram (4) Dizziness Is this a current diagnosis for this admission?: Yes Plan: Patient states that when he was short of breath he was dizzy and lightheaded but no vertigo 02/20/2019 patient does not complain of being lightheaded nor vertigo. - Plan Summary Summary: Will consult cardiology, do serial enzymes, add a beta-robert and a statin. Studies will be determined by the church business administrator. Patient is medically stable. 1619 blood pressure still elevated we will have the patient take his Toprol today may be add Catapres back to his regimen, , order echocardiogram, be late in the hallway on room air - Time Time Spent with patient: 25-34 minutes
[2019-02-20] MEDS ORDERED: CLONIDINE HCL 0.1 MG TABLET PO PRN (10:07)
[2019-02-20] MEDS: ASPIRIN 81 MG TABLET, ENT COATED PO SCH (10:25)
[2019-02-20] MEDS: LOSARTAN POTASSIUM 50 MG TABLET PO SCH ×2 (10:25→21:43)
[2019-02-20] MEDS: DOCUSATE SODIUM 100 MG CAPSULE PO SCH (10:25)
[2019-02-20] MEDS: FAMOTIDINE 20 MG TABLET PO SCH ×2 (10:25→21:45)
[2019-02-20] MEDS: METOPROLOL SUCCINATE 25 MG TAB.SR.24H PO SCH (10:25)
[2019-02-20] MEDS: ENOXAPARIN SODIUM INJ 40 MG/0.4 ML DISP.SYRIN SUBCUT SCH (10:26)
[2019-02-20] MEDS: NORMAL SALINE 1000 ML 1,000 ML IV PRN (18:09)
[2019-02-20] MEDS: ATORVASTATIN CALCIUM 20 MG TABLET PO SCH (21:44)
--- NOTE | 2019-02-20 22:33 | PDOC CONSULTATION ---
Consultation-Blank Consultation: CARDIOLOGY CONSULTATION by Dr. Marla Blanchard on 02/20/2019. Patient seen at 10:30 AM. 60 minutes spent on this patient with more than 50% of time spent in direct patient care. REASON FOR CONSULTATION: Shortness of breath and chest pain. CONSULT REQUESTING PROVIDER: [facility]. HISTORY PRESENT ILLNESS: Patient is a 78-year-old Afro-K[place] male with known history of hypertension and COPD who quit smoking a few years ago states that since the past 4 weeks has been having progressively increasing shortness of breath with wheezing and cough nonproductive of any sputum. He is also has been having intermittent few seconds of sharp pain which recurs. This seems to be noncardiac. 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 His chest x-ray shows some chronic changes. He does have some orthopnea but no PND or leg edema. There is no palpitations or syncope. His cardiac enzymes are so far negative. Past Medical History Cardiac Medical History: Reports: Hypertension Denies: Myocardial Infarction Pulmonary Medical History: Reports: Asthma, Bronchitis, Chronic Obstructive Pulmonary Disease (COPD) Neurological Medical History: Denies: Seizures GI Medical History: Denies: Hepatitis, Hiatal Hernia Musculoskeltal Medical History: Reports: Arthritis, Gout - Right foot Hematology: Denies: Anemia, Sickle Cell Disease Past Surgical History Past Surgical History: Denies: Pacemaker Social History Smoking Status: Former Smoker Electronic Cigarette use?: No Drugs: None - Advance Directive Resuscitation Status: Full Code. His is a surrogate healthcare decision maker. Family History Family History: COPD, Hypertension Parental Family History Reviewed: No Children Family History Reviewed: No Sibling(s) Family History Reviewed.: No Medication/Allergy Home Medications: Clonidine HCl [Catapres 0.1 mg Tablet] 0.1 mg PO Q12 #60 tablet 07/16/18 Losartan Potassium 50 mg PO BID 07/16/18 Allergies/Adverse Reactions: No Known Allergies Allergy (Verified 02/19/19 14:08) Review of Systems Constitutional: ABSENT: chills, fever(s), headache(s), weight gain, weight loss Cardiovascular: PRESENT: dyspnea on exertion Respiratory: PRESENT: cough, dyspnea Neurological: ABSENT: abnormal gait, abnormal speech, confusion, dizziness, focal weakness, syncope Psychiatric: ABSENT: anxiety, depression, homidical ideation, suicidal ideation. Current Medications Acetaminophen (Tylenol 325 Mg Tablet) 650 mg PO Q4HP PRN PRN Reason: FOR HEADACHE OR PAIN Stop: 03/21/19 15:10 Aspirin (Ecotrin 81 Mg Ec Tablet) 81 mg PO DAILY [facility] Stop: 03/22/19 09:59 Last Admin: 02/20/19 10:25 Dose: 81 mg Documented by: Atorvastatin Calcium (Lipitor 20 Mg Tablet) 20 mg PO QHS GELY Stop: 03/21/19 21:59 Last Admin: 02/20/19 21:44 Dose: 20 mg Documented by: Clonidine (Catapres 0.1 Mg Tablet) 0.1 mg PO Q8HP PRN PRN Reason: Give For Sbp > 160/ Dbp > 90 Stop: 03/22/19 10:06 Last Admin: 02/20/19 13:48 Dose: 0.1 mg Documented by: Docusate Sodium (Colace 100 Mg Capsule) 100 mg PO DAILY [facility] Stop: 03/22/19 09:59 Last Admin: 02/20/19 10:25 Dose: 100 mg Documented by: Enoxaparin Sodium (Lovenox Inj 40 Mg/0.4 Ml Disp.Syrin) 40 mg SUBCUT DAILY [facility] Stop: 03/21/19 15:59 Last Admin: 02/20/19 10:26 Dose: 40 mg Documented by: Famotidine (Pepcid 20 Mg Tablet) 20 mg PO Q12 GELY Stop: 03/21/19 21:59 Last Admin: 02/20/19 21:45 Dose: 20 mg Documented by: Sodium Chloride (Nacl 0.9% 1000 Ml Iv Soln) 1,000 mls @ 30 mls/hr IV CONTINUOUS PRN PRN Reason: THIS MED IS NOT "PRN" Stop: 03/21/19 15:10 Last Admin: 02/20/19 18:09 Dose: 30 mls/hr Documented by: Levalbuterol HCl (Xopenex Neb 1.25 Mg/3 Ml Ampul) 1.25 mg NEB RTQ4HP PRN PRN Reason: SHORTNESS OF BREATH Stop: 03/21/19 15:10 Losartan Potassium (Cozaar 50 Mg Tablet) 50 mg PO Q12 GELY Stop: 03/21/19 15:59 Last Admin: 02/20/19 21:43 Dose: 50 mg Documented by: Magnesium Hydroxide (Milk Of Magnesia 30 Ml Udcup) 30 ml PO HSP PRN PRN Reason: FOR CONSTIPATION Stop: 03/21/19 15:10 Metoprolol Succinate (Toprol Xl 25 Mg Tab.Sr) 25 mg PO DAILY [facility] Stop: 03/21/19 16:59 Last Admin: 02/20/19 10:25 Dose: 25 mg Documented by: Nitroglycerin (Nitrostat 0.4 Mg (1/150 Gr) Tabs 25/Bottle) 1 tab SL Q5MP PRN PRN Reason: FOR CHEST PAIN Stop: 03/22/19 06:07 Last Admin: 02/20/19 07:21 Dose: 1 tab Documented by: Ondansetron HCl (Zofran Odt 4 Mg Tablet) 4 mg PO Q8HP PRN PRN Reason: FOR NAUSEA/VOMITING Stop: 03/21/19 15:10 Ondansetron HCl (Zofran Inj/Pf 4 Mg/2 Ml Sdv) 4 mg IV Q8HP PRN PRN Reason: FOR NAUSEA/VOMITING Stop: 03/21/19 15:10 Discontinued Medications Aspirin (Aspirin 81 Mg Chewable Tablet) 324 mg PO NOW ONE Stop: 02/19/19 12:35 Last Admin: 02/19/19 13:11 Dose: Not Given Documented by: Potassium Chloride/Water (Potassium Chloride Noam 20 Meq/50 Ml) 20 meq in 50 mls @ 25 mls/hr IV Q2H GELY Stop: 02/19/19 22:59 Last Infusion: 02/20/19 06:13 Dose: Infused Documented by: Nitroglycerin (Nitrol 2% Ointment 1gm Packet) 1 gm TP NOW ONE Stop: 02/19/19 14:20 Last Admin: 02/19/19 14:24 Dose: 1 gm Documented by: Nitroglycerin (Nitrol 2% Ointment 1gm Packet) 1 gm TP PRN PRN PRN Reason: AFTER USE OF SL NITRO Last Admin: 02/20/19 08:12 Dose: 1 gm Documented by: PHYSICAL EXAMINATION: Patient is well-built and well-nourished. At present in no major distress. Selected Entries 02/20/19 11:05 Temperature 98.1 F Temperature Oral Source Pulse Rate 59 L Respiratory 16 Rate Blood Pressure 199/76 H Blood Pressure 117 Mean BP Location Left Arm BP Position Supine O2 Sat by Pulse 99 Oximetry HEAD: Is atraumatic normocephalic. EYES: Pupils equal round regular REACTIVE TO LIGHT AND ACCOMMODATION. EXTRAOCULAR MOVEMENTS ARE NORMAL. THERE IS NO CONJUNCTIVAL PALLOR. THERE IS NO SCLERAL ICTERUS. Ears: Tympanic membranes are intact. External auditory canals are clear. NOSE: There is no deviated nasal septum. There is no inflammation of the nasal mucous membrane. MOUTH: Mucous memories of mouth are moist. Tongue is moist. There is no ulcers. THROAT: There is no redness of the oropharynx. There is no exudates. SKIN: There is no skin rashes. There is no skin lesions. NECK: Supple. There is no JVD. Carotids are equal there is no bruits. There is no lymphadenopathy. There is no goiter. There is no accessory muscle respiration use. Trachea central. LUNGS: There is diminished air entry prolonged expiration. On percussion there is hyperresonance. There is scattered rhonchi and bilateral end expiratory wheezing. There is no chest wall tenderness. On percussion there is hyperresonance. Heart: S1-S2 is heard. There is an S4 gallop present. There is no S3 gallop. There is no S4 gallop. There is systolic murmur left sternal border and the apex there is no rub. ABDOMEN: Soft. There is no hepatospleno megaly. Bowel sounds are well heard. EXTREMITIES: Femorals are slightly diminished. There is no femoral bruits. Leg pulses are diminished. There is no pedal edema. There is no sinus or clubbing. There is no DVT or cellulitis. There is no calf tenderness. AFTERSCHOOL: The patient is conscious awake alert oriented x3 with no focal deficit. PSYCHIATRIC: Patient judgment insight are intact her affect is normal. Labs- Entire Visit 02/19/19 02/19/19 02/19/19 12:45 12:50 12:50 WBC 8.4 RBC 4.99 Hgb 13.8 Hct 41.8 MCV 84 MCH 27.7 MCHC 33.1 RDW 15.7 H Plt Count 250 Lymph % (Auto) 25.6 Young % (Auto) 8.4 Eos % (Auto) 0.8 Baso % (Auto) 0.2 Absolute Neuts (auto) 5.4 Absolute Lymphs (auto) 2.1 Absolute Monos (auto) 0.7 Absolute Eos (auto) 0.1 Absolute Basos (auto) 0.0 Seg Neutrophils % 65.0 PT INR APTT Sodium 139.6 Potassium 3.3 L Chloride 96 L Carbon Dioxide 35 H Anion Gap 9 BUN 15 Creatinine 0.78 Est GFR ( Amer) > 60 Est GFR (MDRD) Non-Af > 60 Glucose 89 Calcium 8.9 Magnesium Total Bilirubin 0.5 Direct Bilirubin 0.1 Neonat Total Bilirubin Not Reportable Neonat Direct Bilirubin Not Reportable Neonat Indirect Bili Not Reportable AST 21 ALT 12 Alkaline Phosphatase 91 Creatine Kinase 185 H CK-MB (CK-2) Troponin I NT-Pro-B Natriuret Pep Total Protein 8.1 Albumin 4.2 TSH Urine Color COLORLESS Urine Appearance CLEAR Urine pH 8.0 Ur Specific Armour 1.006 Urine Protein NEGATIVE Urine Glucose (UA) NEGATIVE Urine Ketones NEGATIVE Urine Blood NEGATIVE Urine Nitrite NEGATIVE Urine Bilirubin NEGATIVE Urine Urobilinogen NEGATIVE Ur Leukocyte Esterase NEGATIVE Urine WBC (Auto) 0 Urine RBC (Auto) 1 Urine Mucus (Auto) RARE Urine Ascorbic Acid NEGATIVE 02/19/19 02/19/19 02/19/19 12:50 15:30 15:30 WBC RBC Hgb Hct MCV MCH MCHC RDW Plt Count Lymph % (Auto) Young % (Auto) Eos % (Auto) Baso % (Auto) Absolute Neuts (auto) Absolute Lymphs (auto) Absolute Monos (auto) Absolute Eos (auto) Absolute Basos (auto) Seg Neutrophils % PT 12.3 INR 0.92 APTT Sodium Potassium Chloride Carbon Dioxide Anion Gap BUN Creatinine Est GFR ( Amer) Est GFR (MDRD) Non-Af Glucose Calcium Magnesium Total Bilirubin Direct Bilirubin Neonat Total Bilirubin Neonat Direct Bilirubin Neonat Indirect Bili AST ALT Alkaline Phosphatase Creatine Kinase CK-MB (CK-2) 2.20 Troponin I 0.012 NT-Pro-B Natriuret Pep 488 H Total Protein Albumin TSH 2.55 Urine Color Urine Appearance Urine pH Ur Specific Armour Urine Protein Urine Glucose (UA) Urine Ketones Urine Blood Urine Nitrite Urine Bilirubin Urine Urobilinogen Ur Leukocyte Esterase Urine WBC (Auto) Urine RBC (Auto) Urine Mucus (Auto) Urine Ascorbic Acid 02/19/19 02/20/19 02/20/19 21:35 03:39 05:35 WBC 6.9 RBC 4.15 L Hgb 11.5 L D Hct 34.7 L MCV 84 MCH 27.7 MCHC 33.2 RDW 15.4 H Plt Count 217 Lymph % (Auto) 29.1 Young % (Auto) 7.1 Eos % (Auto) 1.2 Baso % (Auto) 0.3 Absolute Neuts (auto) 4.3 Absolute Lymphs (auto) 2.0 Absolute Monos (auto) 0.5 Absolute Eos (auto) 0.1 Absolute Basos (auto) 0.0 Seg Neutrophils % 62.3 PT INR APTT Sodium Potassium Chloride Carbon Dioxide Anion Gap BUN Creatinine Est GFR ( Amer) Est GFR (MDRD) Non-Af Glucose Calcium Magnesium Total Bilirubin Direct Bilirubin Neonat Total Bilirubin Neonat Direct Bilirubin Neonat Indirect Bili AST ALT Alkaline Phosphatase Creatine Kinase CK-MB (CK-2) 1.61 1.57 Troponin I < 0.012 < 0.012 NT-Pro-B Natriuret Pep Total Protein Albumin TSH Urine Color Urine Appearance Urine pH Ur Specific Armour Urine Protein Urine Glucose (UA) Urine Ketones Urine Blood Urine Nitrite Urine Bilirubin Urine Urobilinogen Ur Leukocyte Esterase Urine WBC (Auto) Urine RBC (Auto) Urine Mucus (Auto) Urine Ascorbic Acid 02/20/19 02/20/19 05:35 05:35 WBC RBC Hgb Hct MCV MCH MCHC RDW Plt Count Lymph % (Auto) Young % (Auto) Eos % (Auto) Baso % (Auto) Absolute Neuts (auto) Absolute Lymphs (auto) Absolute Monos (auto) Absolute Eos (auto) Absolute Basos (auto) Seg Neutrophils % PT INR APTT 30.3 Sodium 137.9 Potassium 4.0 Chloride 98 Carbon Dioxide 35 H Anion Gap 5 BUN 17 Creatinine 0.91 Est GFR ( Amer) > 60 Est GFR (MDRD) Non-Af > 60 Glucose 79 Calcium 8.1 L Magnesium 1.8 Total Bilirubin Direct Bilirubin Neonat Total Bilirubin Neonat Direct Bilirubin Neonat Indirect Bili AST ALT Alkaline Phosphatase Creatine Kinase CK-MB (CK-2) Troponin I NT-Pro-B Natriuret Pep Total Protein Albumin TSH Urine Color Urine Appearance Urine pH Ur Specific Armour Urine Protein Urine Glucose (UA) Urine Ketones Urine Blood Urine Nitrite Urine Bilirubin Urine Urobilinogen Ur Leukocyte Esterase Urine WBC (Auto) Urine RBC (Auto) Urine Mucus (Auto) Urine Ascorbic Acid Chest X-Ray 02/19/19 00:00 IMPRESSION: Chronic lung changes with no acute cardiopulmonary findings. EKG: Sinus bradycardia. Atrial premature complex. Probable left atrial abnormality. LVH. ECHOCARDIOGRAM: Normal LA size.Mild to Moderate LVH.Mild LVDD.Normal LVEF of 65%.Mild MR.No MS or MVP.Mild TR.Mild Pulmonary hypertension.RVSP - 39 mm of Hg.No or AAR.No PS or OK.No pericardial effusion. IMPRESSION/RECOMMENDATION: 1. Shortness of breath most likely related to COPD and probably does have chronic interstitial pneumonitis. Would recommend getting a high-resolution pulmonary CT. 2. Noncardiac sharp chest pains. Note no acute changes on the EKG, and no elevation of troponin levels. 3. COPD with acute exacerbation. Recommend continued treatment with bronchodilators and possibly add steroids. Consider antibiotics. 4. Hypertension: Still uncontrolled would recommend adding Procardia. Medications reviewed. Medications adjusted. Management plan and medication regimen discussed with attending provider on the case. Medical decision making is of high complexity. 60 minutes spent on this patient more than 50% of time spent in direct patient care. Will follow
--- NOTE | 2019-02-21 00:27 | XCELERA REPORT ---
[address] [address] Transthoracic Echocardiogram Report Name: CONCEPCION TURNER Age: 78 yrs Gender: Male : 1940 Patient Status: Inpatient Patient Location: [address] [place], [place] [address] Study Date: 02/20/2019 05:09 PM Height: 75 in Weight: 165 lb BSA: 2.0 m2 Procedure: A two-dimensional transthoracic echocardiogram with color flow and Doppler was performed. Study Quality: Fair. Reason For Study: SOB, CP History: Shortness of breath. Chest pain. Ordering Physician: CORINNA WEAVER Performed By: Elicia Treviño Interpretation Summary The left ventricle is normal in size. There is mild to moderate concentric left ventricular hypertrophy. LV EF is 65% Left ventricular systolic function is normal. Doppler measurements suggest impaired left ventricular relaxation, which is associated with grade I/IV or mild diastolic dysfunction The left ventricular wall motion is normal. There is no thrombus. There is no ventricular septal defect visualized. The right ventricle is normal in size and function. The right atrium is normal. The left atrial size is normal. The interatrial septum is intact with no evidence for an atrial septal defect. There is no Doppler evidence for an interatrial shunt There is no evidence of mitral valve prolapse. There is no vegetation seen on the mitral valve. There is no mitral valve stenosis. There is a trace to mild amount of mitral regurgitation There is no aortic valvular vegetation. There is no aortic valve stenosis There is no LVOT obstruction. No aortic regurgitation is present. There is no tricuspid stenosis. There is a mild amount of tricuspid regurgitation There is mild pulmonary hypertension by echo RVSP is 39 mm of Hg , with RA mean of 10. There is no pulmonic valvular stenosis. There is no pulmonic valvular regurgitation. The aortic root is normal size. The inferior vena cava appeared normal and decreased > 50% with respiration (RAP 5-10 mmHg) There is no pericardial effusion. MMode/2D Measurements & Calculations RVDd: 2.7 cm LVIDd: 5.2 cm FS: 37.3 % Ao root diam: 3.6 cm IVSd: 1.2 cm LVIDs: 3.3 cm EDV(Teich): Ao root area: LVPWd: 1.1 cm 132.2 ml 10.0 cm2 ESV(Teich): LA dimension: 3.3 cm 43.8 ml EF(Teich): 66.8 % LVLd ap4: 6.4 cm SV(MOD-sp4): EDV(MOD-sp4): 52.0 ml 72.0 ml LVLs ap4: 4.8 cm ESV(MOD-sp4): 20.0 ml EF(MOD-sp4): 72.2 % Doppler Measurements & Calculations MV E max zakia: MV P1/2t max zakia: Ao V2 max: LV V1 max P.6 cm/sec 109.0 cm/sec 119.4 cm/sec 3.8 mmHg MV A max zakia: MV P1/2t: 74.2 msec Ao max P.7 mmHgLV V1 max: 109.5 cm/sec MVA(P1/2t): 3.0 cm2 97.6 cm/sec MV E/A: 0.99 MV dec slope: 430.2 cm/sec2 PA V2 max: TR max zakia: MV P1/2t-pr_phl: 103.4 cm/sec 268.4 cm/sec 69.7 msec PA max P.3 mmHg TR max P.8 mmHg Left Ventricle The left ventricle is normal in size. There is mild to moderate concentric left ventricular hypertrophy. LV EF is 65%. Left ventricular systolic function is normal. Doppler measurements suggest impaired left ventricular relaxation, which is associated with grade I/IV or mild diastolic dysfunction. The left ventricular wall motion is normal. There is no thrombus. There is no ventricular septal defect visualized. Right Ventricle The right ventricle is normal in size and function. Atria The right atrium is normal. The left atrial size is normal. The interatrial septum is intact with no evidence for an atrial septal defect. There is no Doppler evidence for an interatrial shunt. Mitral Valve There is no evidence of mitral valve prolapse. There is no vegetation seen on the mitral valve. There is no mitral valve stenosis. There is a trace to mild amount of mitral regurgitation. Aortic Valve There is no aortic valvular vegetation. There is no aortic valve stenosis. There is no LVOT obstruction. No aortic regurgitation is present. Tricuspid Valve There is no tricuspid stenosis. There is a mild amount of tricuspid regurgitation. There is mild pulmonary hypertension by echo. RVSP is 39 mm of Hg , with RA mean of 10. Pulmonic Valve There is no pulmonic valvular stenosis. There is no pulmonic valvular regurgitation. Great Vessels The aortic root is normal size. The inferior vena cava appeared normal and decreased > 50% with respiration (RAP 5-10 mmHg). Effusions There is no pericardial effusion. : CORINNA WEAVER Lakshmi
[2019-02-21] MEDS: CLONIDINE HCL 0.1 MG TABLET PO SCH ×2 (06:05→18:01)
[2019-02-21] MEDS: NIFEDIPINE 30 MG TAB.ER.24 PO SCH ×2 (09:13→22:42)
[2019-02-21] MEDS: ENOXAPARIN SODIUM INJ 40 MG/0.4 ML DISP.SYRIN SUBCUT SCH (09:13)
[2019-02-21] MEDS: METOPROLOL SUCCINATE 25 MG TAB.SR.24H PO SCH (09:13)
[2019-02-21] MEDS: FAMOTIDINE 20 MG TABLET PO SCH ×2 (09:13→22:44)
[2019-02-21] MEDS: DOCUSATE SODIUM 100 MG CAPSULE PO SCH (09:14)
[2019-02-21] MEDS: ASPIRIN 81 MG TABLET, ENT COATED PO SCH (09:14)
[2019-02-21] MEDS: LOSARTAN POTASSIUM 50 MG TABLET PO SCH ×2 (09:14→22:44)
[2019-02-21] MEDS ORDERED: CLONIDINE HCL 0.2 MG TABLET PO ONE (12:15)
--- NOTE | 2019-02-21 13:38 | PDOC PROGRESS REPORT ---
Subjective Progress Note for:: 02/21/19 Subjective:: 78-year-old black male who was admitted yesterday for chest pain and shortness of breath. Opponent x3 have been negative. Will monitor patient's blood pressure which still seems to be slightly elevated. Heart rate still less than 60 although patient tells me this is been a problem for years. Will order echocardiogram to evaluate patient's ejection fracture 02/21/2019 Appreciate cardiology's assistance, it does not appear that patient is short of breath based on his cardiac functions or ischemia. High resolution CT scan of the chest is being performed. The nurse called me earlier about his systolic blood pressure being 200 patient was complaining of being lightheaded.. Cardiology has added a new medication, Procardia, and lower his blood pressure Based on CT scan results will decide about adding steroids and/or antibiotics. Patient's O2 sats always been above 96 since his admission and frequently are at 100% on nasal cannula. Even with short ambulation in the room without oxygen patient sats remained at 96, although patient complained of being short of breath Reason For Visit: CHEST PAIN,HYPERTENSION,SHORTNESS OF BREATH,COPD Physical Exam Vital Signs: Temp Pulse Resp BP Pulse Ox 97.5 F 46 L 16 202/71 H 100 02/21/19 11:25 02/21/19 11:25 02/21/19 04:33 02/21/19 11:25 02/21/19 11:25 Intake & Output 02/20/19 02/21/19 02/22/19 06:59 06:59 06:59 Intake Total 984 2119 Output Total 750 1675 Balance 234 444 Weight 74.9 kg 74.1 kg General appearance: PRESENT: no acute distress Respiratory exam: PRESENT: decreased breath sounds Cardiovascular exam: PRESENT: RRR. ABSENT: diastolic murmur, rubs, systolic murmur Neurological exam: PRESENT: alert, awake, oriented to person, oriented to place, oriented to time, oriented to situation, CN II-XII grossly intact. ABSENT: motor sensory deficit Psychiatric exam: PRESENT: anxious Results Laboratory Results: 02/20/19 05:35 02/20/19 05:35 02/19/19 02/19/19 02/19/19 12:50 12:50 21:35 Creatine Kinase 185 H CK-MB (CK-2) 2.20 1.61 Troponin I 0.012 < 0.012 NT-Pro-B Natriuret Pep 488 H 02/20/19 03:39 Creatine Kinase CK-MB (CK-2) 1.57 Troponin I < 0.012 NT-Pro-B Natriuret Pep Impressions: Chest X-Ray 02/19/19 00:00 IMPRESSION: Chronic lung changes with no acute cardiopulmonary findings. Assessment and Plan - Diagnosis (1) Dyspnea on exertion Is this a current diagnosis for this admission?: Yes (2) Hypertension Is this a current diagnosis for this admission?: Yes (3) Chest pain Qualifiers: Chest pain type: other chest pain Qualified Code(s): R07.89 - Other chest pain; R07.8 - Other chest pain Is this a current diagnosis for this admission?: Yes (4) Dizziness Is this a current diagnosis for this admission?: Yes (5) COPD (chronic obstructive pulmonary disease) Is this a current diagnosis for this admission?: Yes - Plan Summary Summary: Will consult cardiology, do serial enzymes, add a beta-robert and a statin. Studies will be determined by the heel wheeler. Patient is medically stable. 02-20-19 blood pressure still elevated we will have the patient take his Toprol today may be add Catapres back to his regimen, , order echocardiogram, be up in the hallway on room air 02/21/2019 Going to check patient sats on room air again, CT scan of the chest is pending, Procardia has just been added to his regimen. Contemplating adding steroids and antibiotics - Time Time Spent with patient: 25-34 minutes
--- NOTE | 2019-02-21 14:21 | RADIOLOGY REPORT (SQ) ---
EXAM DESCRIPTION: CT CHEST WITHOUT COMPLETED DATE/TIME: 02/21/2019 8:48 am REASON FOR STUDY: high resolution COMPARISON: 06/23/2018 and 12/26/2017. Go TECHNIQUE: Supine high resolution technique imaging performed through the lungs windowed for lung wi ndows. Limited evaluation of the mediastinum. All CT scanners at this facility use dose modulation, iterative reconstruction, and/or weight based d osing when appropriate to reduce radiation dose to as low as reasonably achievable (ALARA). [facility]: Dose Right [facility]: CareDose [facility]: Dose Right [facility]: Teradose 4D [facility]: Twelvefold RADIATION DOSE: CT Rad equipment meets quality standard of care and radiation dose reduction techniq ues were employed. CTDIvol: 2.2 mGy. DLP: 84 mGy-cm. mGy. LIMITATIONS: The patient was unable to tolerate prone imaging. FINDINGS: LUNGS AND PLEURA: Mild centrilobular emphysema. Stable scarring in the right upper lobe. Stable nodular partially calcified pleural plaques. There is a nodule in the posterior left lower l obe (image 31) which has increased in size. Current measurement 1.9 cm and prior measurement 1.1 cm. LIMITED MEDIASTINUM: No masses. BONES: No significant findings. OTHER: No other significant finding. IMPRESSION: MILD CENTRILOBULAR EMPHYSEMA. STABLE SCARRING IN THE RIGHT UPPER LOBE AND STABLE NODULA R PARTIALLY CALCIFIED PLEURAL PLAQUES. A NODULE IN THE POSTERIOR LEFT LOWER LOBE HAS INCREASED IN SI ZE. RECOMMEND FOLLOW-UP WITH STANDARD CHEST CT WITH INTRAVENOUS CONTRAST. TECHNICAL DOCUMENTATION: JOB ID: [id number] Quality ID # [id number]: Final reports with documentation of one or more dose reduction techniques (e.g., Au tomated exposure control, adjustment of the mA and/or kV according to patient size, use of iterative reconstruction technique) 2010 [employer]- All Rights Reserved Reading location - IP/workstation name: [email or web address]
[2019-02-21] MEDS: METHYLPREDNISOLONE INJ 40 MG/1 ML SDV IV SCH ×2 (16:10→22:42)
--- NOTE | 2019-02-21 16:45 | RADIOLOGY REPORT (SQ) ---
EXAM DESCRIPTION: CT CHEST WITH COMPLETED DATE/TIME: 02/21/2019 4:02 pm REASON FOR STUDY: nodule on previous scan, increased in size. COMPARISON: High-resolution CT dated 02/21/2019. Routine chest CT dated 06/23/2018. TECHNIQUE: CT scan of the chest performed using helical scanning technique with dynamic intravenous contrast injection. Images reviewed with lung, soft tissue and bone windows. Reconstructed coronal and sagittal MPR and MIP images reviewed. All images stored on PACS. All CT scanners at this facility use dose modulation, iterative reconstruction, and/or weight based d osing when appropriate to reduce radiation dose to as low as reasonably achievable (ALARA). [facility]: Dose Right [facility]: CareDose [facility]: Dose Right [facility]: Teradose 4D [facility]: [place] CONTRAST TYPE AND DOSE: contrast/concentration: Isovue 350.00 mg/ml; Total Contrast Delivered: 80.0 ml; Total Saline Delivered: 55.0 ml RENAL FUNCTION: BUN 17 creatinine 0.91. RADIATION DOSE: CT Rad equipment meets quality standard of care and radiation dose reduction techniq ues were employed. CTDIvol: 3.6 mGy. DLP: 171 mGy-cm. . LIMITATIONS: None. FINDINGS: LUNGS AND PLEURA: The nodule in the posterior left lung base has a maximum AP measurement of approximately 1.5 cm on the current scan. Slightly larger compared to the prior study from 2018. Again seen are emphysematous changes with chronic scarring in the right upper lobe. Multip le nodular partially calcified pleural plaques unchanged. HILAR AND MEDIASTINAL STRUCTURES: No identified masses or abnormal nodes. HEART AND VASCULAR STRUCTURES: No aneurysm or dissection. No central pulmonary emboli. No pericardi al effusion. HARDWARE: None in the chest. UPPER ABDOMEN: No significant findings. Limited exam. THYROID AND OTHER SOFT TISSUES: No masses. No adenopathy. BONES: No significant finding. OTHER: No other significant finding. IMPRESSION: 1. NODULE IN THE POSTERIOR LEFT LUNG BASE IS SLIGHTLY LARGER WHEN COMPARED TO THE PRIOR STUDY FROM 2018. COMPARISON OF THE CURRENT STUDY TO THE OLDER STUDY IS PROBABLY MORE ACCURATE OPPOSED TO COMPARING THE HIGH-RESOLUTION STUDY. MAY CONSIDER FOLLOW-UP PET SCAN TO DETERMINE IF THIS NODULE IS METABOLICALLY ACTIVE. ANOTHER ALTERNATIVE WOULD BE FOLLOW-UP CT IN 3 TO 4 MONTHS. 2. OTHER CHRONIC FINDINGS INCLUDING SCARRING IN THE RIGHT UPPER LOBE AND MULTIPLE NODULAR PLEURAL AMANDA QUES ARE UNCHANGED. TECHNICAL DOCUMENTATION: JOB ID: [id number] Quality ID # [id number]: Final reports with documentation of one or more dose reduction techniques (e.g., Au tomated exposure control, adjustment of the mA and/or kV according to patient size, use of iterative reconstruction technique) 2010 [employer]- All Rights Reserved Reading location - IP/workstation name: [email or web address]
[2019-02-21] MEDS: ATORVASTATIN CALCIUM 20 MG TABLET PO SCH (22:45)
--- NOTE | 2019-02-21 23:18 | Progress Note ---
Provider Note Provider Note: CARDIOLOGY PROGRESS NOTE by Dr. Marla Haddad on 02/21/2019. SUBJECTIVE:. The patient states that shortness of breath is much improved. There is no further chest pains. He has no PND or orthopnea. There is no leg edema. There is no arrhythmia seen on the monitor. There is no TIA CVA symptoms. Earlier this morning his blood pressure was 202 systolic. But with beta Procardia and his current medication regimen his blood pressure is well controlled. Physical EXAMINATION: The patient is well-built and well-nourished in no acute distress. Selected Entries 02/21/19 15:26 Temperature 97.5 F Temperature Oral Source Pulse Rate 50 L Respiratory 22 H Rate Blood Pressure 136/61 H Blood Pressure 86 Mean BP Location Right Arm BP Position Sitting O2 Sat by Pulse 97 Oximetry Oxygen Delivery Room Air Method HEAD: Is atraumatic normocephalic. EYES: Pupils equal round regular REACTIVE TO LIGHT AND ACCOMMODATION. EXTRAOCULAR MOVEMENTS ARE NORMAL. THERE IS NO CONJUNCTIVAL PALLOR. THERE IS NO SCLERAL ICTERUS. Ears: Tympanic membranes are intact. External auditory canals are clear. NOSE: There is no deviated nasal septum. There is no inflammation of the nasal mucous membrane. MOUTH: Mucous memories of mouth are moist. Tongue is moist. There is no ulcers. THROAT: There is no redness of the oropharynx. There is no exudates. SKIN: There is no skin rashes. There is no skin lesions. NECK: Supple. There is no JVD. Carotids are equal there is no bruits. There is no lymphadenopathy. There is no goiter. There is no accessory muscle respiration use. Trachea central. LUNGS: There is diminished air entry prolonged expiration. On percussion there is hyperresonance. There is scattered rhonchi and bilateral end expiratory wheezing. There is no chest wall tenderness. On percussion there is hyperresonance. Heart: S1-S2 is heard. There is an S4 gallop present. There is no S3 gallop. There is no S4 gallop. There is systolic murmur left sternal border and the apex there is no rub. ABDOMEN: Soft. There is no hepatospleno megaly. Bowel sounds are well heard. EXTREMITIES: Femorals are slightly diminished. There is no femoral bruits. Leg pulses are diminished. There is no pedal edema. There is no sinus or clubbing. There is no DVT or cellulitis. There is no calf tenderness. ROUTE CARRIER: The patient is conscious awake alert oriented x3 with no focal deficit. PSYCHIATRIC: Patient judgment insight are intact her affect is normal. Chest X-Ray 02/19/19 00:00 IMPRESSION: Chronic lung changes with no acute cardiopulmonary findings. Chest CT 02/21/19 00:00 IMPRESSION: MILD CENTRILOBULAR EMPHYSEMA. STABLE SCARRING IN THE RIGHT UPPER LOBE AND STABLE NODULAR PARTIALLY CALCIFIED PLEURAL PLAQUES. A NODULE IN THE POSTERIOR LEFT LOWER LOBE HAS INCREASED IN SIZE. RECOMMEND FOLLOW-UP WITH STANDARD CHEST CT WITH INTRAVENOUS CONTRAST. Chest CT 02/21/19 00:00 IMPRESSION: 1. NODULE IN THE POSTERIOR LEFT LUNG BASE IS SLIGHTLY LARGER WHEN COMPARED TO THE PRIOR STUDY FROM JUNE 2018. COMPARISON OF THE CURRENT STUDY TO THE OLDER STUDY IS PROBABLY MORE ACCURATE OPPOSED TO COMPARING THE HIGH- RESOLUTION STUDY. MAY CONSIDER FOLLOW-UP PET SCAN TO DETERMINE IF THIS NODULE IS METABOLICALLY ACTIVE. ANOTHER ALTERNATIVE WOULD BE FOLLOW-UP CT IN 3 TO 4 MONTHS. 2. OTHER CHRONIC FINDINGS INCLUDING SCARRING IN THE RIGHT UPPER LOBE AND MULTIPLE NODULAR PLEURAL PLAQUES ARE UNCHANGED. IMPRESSION/RECOMMENDATION: 1. Shortness of breath most likely related to COPD and probably does have chronic interstitial pneumonitis. This is improved and the patient has no further shortness of breath. High-resolution CT of the chest without contrast shows a nodule in the posterior left lung lung base. There are pleural plaques and evidence of COPD. With chronic scarring. 2. Noncardiac sharp chest pains. Note no acute changes on the EKG, and no elevation of troponin levels. 3. COPD with acute exacerbation. Recommend continued treatment with bronchodilators and possibly add steroids. Consider antibiotics. 4. Hypertension: Well-controlled on current medication including clonidine and Procardia. Adding Procardia. 5. Bradycardia: Asymptomatic with stable blood pressure. Expect that the heart rate would warp picker once the patient ambulates and once his blood pressure is well controlled and hence there would be no baroreceptor reflex causing bradycardia. Medications reviewed. CT scan discussed with the patient. Medical decision making is of moderate complexity. 40 minutes spent on this patient more than 50% of time spent in direct patient care. Medication regimen and management plan discussed with the attending physician on the case. Cardiac status seems to be stable. Will sign off and follow the patient as an outpatient.
[2019-02-22] MEDS: CLONIDINE HCL 0.1 MG TABLET PO SCH (05:49)
[2019-02-22] MEDS: METHYLPREDNISOLONE INJ 40 MG/1 ML SDV IV SCH (05:49)
[2019-02-22] MEDS: ENOXAPARIN SODIUM INJ 40 MG/0.4 ML DISP.SYRIN SUBCUT SCH (09:22)
[2019-02-22] MEDS: NIFEDIPINE 30 MG TAB.ER.24 PO SCH (09:22)
[2019-02-22] MEDS: ASPIRIN 81 MG TABLET, ENT COATED PO SCH (09:23)
[2019-02-22] MEDS: DOCUSATE SODIUM 100 MG CAPSULE PO SCH (09:23)
[2019-02-22] MEDS: FAMOTIDINE 20 MG TABLET PO SCH (09:23)
[2019-02-22] MEDS: LOSARTAN POTASSIUM 50 MG TABLET PO SCH (09:23)
[2019-02-22 13:19] VITALS: BP 154/89
--- NOTE | 2019-02-23 16:52 | PDOC DISCHARGE SUMMARY ---
Impression - Admit/DC Date/PCP Admission Date/Primary Care Provider: 02/19/19 14:38 PAOLO WELLS PA-C Discharge Date: 02/22/19 - Discharge Diagnosis (1) Dyspnea on exertion Is this a current diagnosis for this admission?: Yes (2) Hypertension Is this a current diagnosis for this admission?: Yes (3) Chest pain Is this a current diagnosis for this admission?: Yes (4) Dizziness Is this a current diagnosis for this admission?: Yes (5) COPD (chronic obstructive pulmonary disease) Is this a current diagnosis for this admission?: Yes - Assessment Summary: Will consult cardiology, do serial enzymes, add a beta-robert and a statin. Studies will be determined by the laboratory veterinarian. Patient is medically stable. 02-20-19 blood pressure still elevated we will have the patient take his Toprol today may be add Catapres back to his regimen, , order echocardiogram, be up in the hallway on room air 02/21/2019 Going to check patient sats on room air again, CT scan of the chest is pending, Procardia has just been added to his regimen. Contemplating adding steroids and antibiotics 02 22 19 78-year-old black male was admitted to the hospital for shortness of breath for 3 to 4 weeks, around 10 to think that this was going on much longer than that. She tells me he has a history of COPD she is probably secondary to emphysema. Does state that he has had a cough that is nonproductive for the last couple of weeks now. On the hospital patient had a CT of the chest x2 1 with high resolution which did show a pulmonary nodule in the left lung base. She was told that he would need follow-up CT scan in 3 to 4 months. Also showed chronic findings and scarring in the right upper lobe and multiple nodular pleural plaques which were unchanged. She did have a cardiac work-up which did not explain his shortness of breath.. Dental Laboratory Technician Apprentice recommended that he see the patient as an outpatient. Patient was told to call the laboratory veterinarian office Monday make a follow-up for 7 to 10 days. Patient's O2 sats were monitored closely during his hospitalization patient never really drifted below 96%. Patient did not meet requirements for home O2 Since blood pressures were much better controlled with the addition of Procardia well as Toprol. Prescription written for Toprol XL 25 mg 1 tablet daily Procardia XL 60 mg every 12 hours a Medrol Dosepak as directed and Lipitor 20 mg daily. Patient did have an echocardiogram while in the hospital which showed an EF of 65% Patient was told that his age he does not need to be working, as he states with exertion on his job he becomes more short of breath. Patient was discharged home in stable condition Gnosis would be hypertension, chest pain, COPD, emphysema, abnormal CT scan with pulmonary nodule - Additional Information Resuscitation Status: Full Code Discharge Diet: As Tolerated Discharge Activity: Balance Activity w/Rest Referrals: PAOLO WELLS PA-C [Primary Care Provider] - 02/27/19 3:45 pm SCOTTIE MCMAHON MD [ACTIVE STAFF] - 03/08/19 10:00 am Prescriptions: Atorvastatin Calcium [Lipitor 20 mg Tablet] 20 mg PO QHS #30 tablet Methylprednisolone [Medrol Dosepack (4 mg/Tab) 21 Tab/Dosepak] 4 mg PO ASDIR PRN #21 tab.ds.pk PRN Reason: Nifedipine [Procardia XL 30 mg Tablet] 60 mg PO Q12 #60 tab.er.24 Metoprolol Succinate [Toprol Xl 25 mg Tab.sr] 25 mg PO DAILY #30 tab.sr.24h Home Medications: Albuterol Sulfate [Albuterol Sulfate Hfa] 2 puff IH Q4HP PRN 02/19/19 Albuterol Sulfate [Ventolin 0.083% Neb 2.5 mg/3 mL Ampul] 3 ml NEB Q8 02/19/19 Budesonide/Formoterol Fumarate [Symbicort HFA 160-4.5 mcg Inhaler 6 gm] 2 puff IH Q12 02/19/19 Clonidine HCl [Catapres 0.1 mg Tablet] 0.1 mg PO Q12 02/19/19 Fluticasone Propionate [Flonase Nasal Alva 50 Mcg/Alva 16 gm] 1 spray NASL DAILY 02/19/19 Losartan Potassium [Cozaar 50 mg Tablet] 50 mg PO Q12 02/19/19 Aspirin [Ecotrin 81 mg EC Tablet] 81 mg PO DAILY tabec 02/22/19 Atorvastatin Calcium [Lipitor 20 mg Tablet] 20 mg PO QHS #30 tablet 02/22/19 Clonidine HCl [Catapres 0.1 mg Tablet] 0.1 mg PO Q12A tablet 02/22/19 Losartan Potassium [Cozaar 50 mg Tablet] 50 mg PO Q12 tablet 02/22/19 Methylprednisolone [Medrol Dosepack (4 mg/Tab) 21 Tab/Dosepak] 4 mg PO ASDIR PRN #21 tab.ds.pk 02/22/19 Metoprolol Succinate [Toprol Xl 25 mg Tab.sr] 25 mg PO DAILY #30 tab.sr.24h 02/22/19 Nifedipine [Procardia XL 30 mg Tablet] 60 mg PO Q12 #60 tab.er.24 02/22/19 History of Present Illiness History of Present Illness: 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 Patient states that he is also had some sharp chest pain. Patient denies any pain that radiates down the arm or up into the neck. he does state that he has had a dry nonproductive cough for the last couple weeks and is been taking lots of cough medicine for this. May be one reason that his blood pressure was elevated today. His only other significant medical problem involves hypertension asthma bronchitis and COPD Physical Exam Vital Signs: Temp Pulse Resp BP Pulse Ox 97.5 F 60 17 154/89 H 95 02/22/19 11:39 02/22/19 11:39 02/22/19 11:39 02/22/19 11:39 02/22/19 11:39 Intake & Output 02/22/19 02/23/19 02/24/19 06:59 06:59 06:59 Intake Total 954 1045 Output Total 2925 875 Balance -1970 170 Weight 71.2 kg Results Laboratory Results: WBC 6.9 10^3/uL (4.0-10.5) 02/20/19 05:35 RBC 4.15 10^6/uL (4.35-5.55) L 02/20/19 05:35 Hgb 11.5 g/dL (13.5-17.0) L D 02/20/19 05:35 Hct 34.7 % (37.9-51.0) L 02/20/19 05:35 MCV 84 fl (80-97) 02/20/19 05:35 MCH 27.7 pg (27.0-33.4) 02/20/19 05:35 MCHC 33.2 g/dL (32.0-36.0) 02/20/19 05:35 RDW 15.4 % (11.5-14.0) H 02/20/19 05:35 Plt Count 217 10^3/uL (150-450) 02/20/19 05:35 Lymph % (Auto) 29.1 % (13-45) 02/20/19 05:35 [place] % (Auto) 7.1 % (3-13) 02/20/19 05:35 Eos % (Auto) 1.2 % (0-6) 02/20/19 05:35 Baso % (Auto) 0.3 % (0-2) 02/20/19 05:35 Absolute Neuts (auto) 4.3 10^3/uL (1.7-8.2) 02/20/19 05:35 Absolute Lymphs (auto) 2.0 10^3/uL (0.5-4.7) 02/20/19 05:35 Absolute Monos (auto) 0.5 10^3/uL (0.1-1.4) 02/20/19 05:35 Absolute Eos (auto) 0.1 10^3/uL (0.0-0.6) 02/20/19 05:35 Absolute Basos (auto) 0.0 10^3/uL (0.0-0.2) 02/20/19 05:35 Seg Neutrophils % 62.3 % (42-78) 02/20/19 05:35 PT 12.3 SEC (11.4-15.4) 02/19/19 15:30 INR 0.92 02/19/19 15:30 APTT 30.3 SEC (23.5-35.8) 02/20/19 05:35 Sodium 137.9 mmol/L (137-145) 02/20/19 05:35 Potassium 4.0 mmol/L (3.6-5.0) 02/20/19 05:35 Chloride 98 mmol/L (98-107) 02/20/19 05:35 Carbon Dioxide 35 mmol/L (22-30) H 02/20/19 05:35 Anion Gap 5 (5-19) 02/20/19 05:35 BUN 17 mg/dL (7-20) 02/20/19 05:35 Creatinine 0.91 mg/dL (0.52-1.25) 02/20/19 05:35 Est GFR ( Amer) > 60 (>60) 02/20/19 05:35 Est GFR (MDRD) Non-Af > 60 (>60) 02/20/19 05:35 Glucose 79 mg/dL (75-110) 02/20/19 05:35 Calcium 8.1 mg/dL (8.4-10.2) L 02/20/19 05:35 Magnesium 1.8 mg/dL (1.6-2.3) 02/20/19 05:35 Total Bilirubin 0.5 mg/dL (0.2-1.3) 02/19/19 12:50 Direct Bilirubin 0.1 mg/dL (0.0-0.4) 02/19/19 12:50 Neonat Total Bilirubin Not Reportable 02/19/19 12:50 Neonat Direct Bilirubin Not Reportable 02/19/19 12:50 Neonat Indirect Bili Not Reportable 02/19/19 12:50 AST 21 U/L (17-59) 02/19/19 12:50 ALT 12 U/L (<50) 02/19/19 12:50 Alkaline Phosphatase 91 U/L (38-126) 02/19/19 12:50 Creatine Kinase 185 U/L (55-170) H 02/19/19 12:50 CK-MB (CK-2) 1.57 ng/mL (<4.55) 02/20/19 03:39 Troponin I < 0.012 ng/mL 02/20/19 03:39 NT-Pro-B Natriuret Pep 488 pg/mL (<450) H 02/19/19 12:50 Total Protein 8.1 g/dL (6.3-8.2) 02/19/19 12:50 Albumin 4.2 g/dL (3.5-5.0) 02/19/19 12:50 TSH 2.55 uIU/mL (0.47-4.68) 02/19/19 15:30 Urine Color COLORLESS 02/19/19 12:45 Urine Appearance CLEAR 02/19/19 12:45 Urine pH 8.0 (5.0-9.0) 02/19/19 12:45 Ur Specific Mcgraw 1.006 02/19/19 12:45 Urine Protein NEGATIVE mg/dL (NEGATIVE) 02/19/19 12:45 Urine Glucose (UA) NEGATIVE mg/dL (NEGATIVE) 02/19/19 12:45 Urine Ketones NEGATIVE mg/dL (NEGATIVE) 02/19/19 12:45 Urine Blood NEGATIVE (NEGATIVE) 02/19/19 12:45 Urine Nitrite NEGATIVE (NEGATIVE) 02/19/19 12:45 Urine Bilirubin NEGATIVE (NEGATIVE) 02/19/19 12:45 Urine Urobilinogen NEGATIVE mg/dL (<2.0) 02/19/19 12:45 Ur Leukocyte Esterase NEGATIVE (NEGATIVE) 02/19/19 12:45 Urine WBC (Auto) 0 /HPF 02/19/19 12:45 Urine RBC (Auto) 1 /HPF 02/19/19 12:45 Urine Mucus (Auto) RARE /LPF 02/19/19 12:45 Urine Ascorbic Acid NEGATIVE (NEGATIVE) 02/19/19 12:45 02/19/19 02/19/19 02/20/19 12:50 21:35 03:39 CK-MB (CK-2) 2.20 1.61 1.57 Troponin I 0.012 < 0.012 < 0.012 NT-Pro-B Natriuret Pep 488 H Impressions: Chest X-Ray 02/19/19 00:00 IMPRESSION: Chronic lung changes with no acute cardiopulmonary findings. Chest CT 02/21/19 00:00 IMPRESSION: MILD CENTRILOBULAR EMPHYSEMA. STABLE SCARRING IN THE RIGHT UPPER LOBE AND STABLE NODULAR PARTIALLY CALCIFIED PLEURAL PLAQUES. A NODULE IN THE POSTERIOR LEFT LOWER LOBE HAS INCREASED IN SIZE. RECOMMEND FOLLOW-UP WITH STANDARD CHEST CT WITH INTRAVENOUS CONTRAST. Chest CT 02/21/19 00:00 IMPRESSION: 1. NODULE IN THE POSTERIOR LEFT LUNG BASE IS SLIGHTLY LARGER WHEN COMPARED TO THE PRIOR STUDY FROM JUNE 2018. COMPARISON OF THE CURRENT STUDY TO THE OLDER STUDY IS PROBABLY MORE ACCURATE OPPOSED TO COMPARING THE HIGH- RESOLUTION STUDY. MAY CONSIDER FOLLOW-UP PET SCAN TO DETERMINE IF THIS NODULE IS METABOLICALLY ACTIVE. ANOTHER ALTERNATIVE WOULD BE FOLLOW-UP CT IN 3 TO 4 MONTHS. 2. OTHER CHRONIC FINDINGS INCLUDING SCARRING IN THE RIGHT UPPER LOBE AND MULTIPLE NODULAR PLEURAL PLAQUES ARE UNCHANGED. Stroke Is this a Stroke Patient?: No Acute Heart Failure - Is this a Heart Failure Patient?: No
== END 2019-02-22 13:46 | disposition home or self-care (01) ==
LOC: ER 12:32 → EH 14:38 → 4N 15:46
PROVIDERS: ADMIT Hospitalist; ATTEND Hospitalist
DX: R06.09 Other forms of dyspnea (principal); I10 Essential (primary) hypertension; R07.89 Other chest pain; R42 Dizziness and giddiness; J44.1 Chronic obstructive pulmonary disease with (acute) exacerbation; R91.1 Solitary pulmonary nodule; R00.1 Bradycardia, unspecified; Z79.899 Other long term (current) drug therapy; Z87.891 Personal history of nicotine dependence; Z82.49 Family history of ischemic heart disease and other diseases of the circulatory system
CPT/HCPCS: 93005; 99285; 36415 ×2; 82553 ×2; 82550; 83735; 84443; 85025 ×2; 85610; 85730; 80048; 80053; 81001; 84484 ×2; 83880; 93306; 71046; 71250; 71260; 93010; G0378 ×5; J2920 ×2; J1650 ×4; J3480; J7030 ×2

== ENCOUNTER → 2019-04-09 | Outpatient (CLI) | payer BC, MEDICARE ==
--- NOTE | 2019-04-10 15:32 | RADIOLOGY REPORT (SQ) ---
EXAM DESCRIPTION: PET CT SKULL/THIGH COMPLETED DATE/TIME: 04/09/2019 6:00 pm REASON FOR STUDY: SOLITARY PULMONARY NODULE R91.1 SOLITARY PULMONARY NODULE COMPARISON: CT of the chest with contrast from 02/21/2019. RADIONUCLIDE AND DOSE: 10.16 mCi F18 FDG The route of agent administration: Intravenous FASTING BLOOD SUGAR: 100 mg/dl CONTRAST TYPE AND DOSE: No CT contrast given. TECHNIQUE: Blood glucose level was verified. Above dose of FDG was injected intravenously. 2-D seg mented attenuation correction images were obtained from the base of the skull to the midthighs. Nonc ontrast CT images were obtained for attenuation correction and fusion with emission images. CT image s were performed without oral or intravenous contrast and are not sensitive for parenchymal lesions. A series of overlapping emission PET images were obtained. [facility] by the radiologist. Images stored on PACS. LIMITATIONS: None. FINDINGS: HEAD AND NECK: Diffuse uptake in the tongue and nasopharyngeal region without a discrete a natomic correlate or abnormality on CT. CHEST: The trachea and main bronchi are patent. The lower lobar bronchiectasis and the tubular and b ranching opacities in the right upper lobe (image 69 of series 3) are unchanged and demonstrate no ab normal FDG uptake. The numerous bilateral calcified and noncalcified pleural based pulmonary nodules including the nodule of interest in the posterior basal segment of the left lower lobe (image 137 of series 3) demonstrate no abnormal FDG uptake. There is no enlarged or hypermetabolic mediastinal ad enopathy. ABDOMEN AND PELVIS: The liver demonstrates heterogeneous non focal FDG uptake with an average SUV of 1.7). There is expected physiologic activity throughout the gastrointestinal and genitourinary tract . No areas of abnormal metabolic activity are identified in the abdomen and pelvis. PROXIMAL LOWER EXTREMITIES: No areas of abnormal metabolic activity in the soft tissues of the lower extremities. BONES: No areas of abnormal metabolic activity in the imaged axial and appendicular skeleton. ADDITIONAL CT FINDINGS: There is atherosclerotic calcification of the aortic arch and coronary arteri es. The left ventricle is enlarged. There is no pericardial effusion. The morphology of the liver i s non cirrhotic. The spleen is normal in size. The nodular enlargement of the adrenal glands is non specific. There is no acute gross abnormality of the pancreas. There is a 5.3 x 4.9 cm hypodense le tate in the lower pole the right kidney with peripheral calcifications. There is no hydronephrosis o r hydroureter. There is atherosclerotic calcification of the abdominal aorta without aneurysmal dila te station. There is no retroperitoneal adenopathy, hemorrhage or mass. The prostate gland is enlar ged. The urinary bladder is nondistended and its wall is circumferentially thickened. There is no b owel obstruction, bowel wall thickening or pericolonic/ perienteric inflammation. OTHER: No other findings. IMPRESSION: 1. The numerous bilateral calcified and noncalcified pleural based pulmonary nodules inc luding the nodule of interest in the posterior basal segment of the left lower lobe (image 137 of ser ies 3) demonstrate no abnormal FDG uptake. There is no enlarged or hypermetabolic mediastinal adenop athy. This the patient have a history of asbestos exposure coal? 2. Diffuse uptake in the tongue and nasopharyngeal region without a discrete anatomic correlate or a bnormality on CT. TECHNICAL DOCUMENTATION: JOB ID: [id number] [employer]- All Rights Reserved Reading location - IP/workstation name: [email or web address]
== END ==
LOC: RAD 10:57
PROVIDERS: ATTEND Internal Medicine Critical Care Medicine
DX: R91.1 Solitary pulmonary nodule (principal); R91.8 Other nonspecific abnormal finding of lung field; T75.89XA Other specified effects of external causes, initial encounter; R06.9 Unspecified abnormalities of breathing; J44.9 Chronic obstructive pulmonary disease, unspecified; Z87.891 Personal history of nicotine dependence
CPT/HCPCS: 78815; A9552